=== PATIENT | male | born 1960 | race Caucasian/White ===

== ENCOUNTER → 2018-11-22 09:14 | Outpatient (CLI) | payer OTHER, SELFPAY ==
[2018-11-22 09:48] LABS: Add Manual Diff / Slide Review NO; Basophils Percent Auto 0.7 % (0-2); Eosinophils Percent Auto 2.5 % (2-4); Lymphocytes Percent Auto 25.8 % (25-40); Mean Corpuscular HGB Conc 34.9 % (30-36); Mean Corpuscular Hemoglobin 32.6 PG (26-34); Mean Corpuscular Volume 93.4 fL (80-100); Monocytes Percent Auto 9.3 % (3-14); Neutrophils Absolute Auto 3900 /uL (1500-7000); Neutrophils Percent Auto 61.7 % (50-75); Platelet Count 298 X10^3/uL (150-400); Red Blood Cell Count 4.61 X10^6/uL (4.5-5.9); Red Cell Distribution Width 13.1 % (11.6-14.8); White Blood Cell Count 6.3 X10^3/uL (4.5-11.0)
[2018-11-22 10:14] LABS: Alanine Aminotransferase 20 IU/L (21-72); Albumin 4.7 g/dL (3.5-5.0); Albumin Globulin Ratio 1.5 (1.0-2.8); Alkaline Phosphatase 64 U/L (38-126); Aspartate Aminotransferase 26 IU/L (17-59); Bilirubin Total 0.5 mg/dL (0.2-1.3); Bilirubin Unconjugated 0.3 mg/dL (0.0-1.1); Globulin 3.1 g/dL (1.7-4.1); HEMOLYSIS < 15 (0-50); Total Protein 7.8 g/dL (6.3-8.2)
== END ==
PROVIDERS: PCP Student in an Organized Health Care Education/Training Program; Visit Provider Dermatology
DX: B35.1 Tinea unguium (principal)
CPT/HCPCS: 36415; 80076; 85025

== ENCOUNTER 2019-10-20 10:51 | Emergency (ER) | payer OTHER, SELFPAY ==
[2019-10-20 11:03] VITALS: BP 139/84; PULSE 66; RESP 14; TEMP 37.3; O2SAT 99; BMI 26.4
== END 2019-10-20 14:05 | disposition left against medical advice (07) ==
PROVIDERS: Emergency Provider Nurse Practitioner Family; PCP Student in an Organized Health Care Education/Training Program
CPT/HCPCS: 99283

== ENCOUNTER → 2020-09-21 07:17 | Outpatient (CLI) | payer OTHER, SELFPAY ==
--- NOTE | 2020-09-21 07:21 | DI.RAD.S_ITS ---
PROCEDURE: XR LUMBAR SPINE 2-3V INDICATIONS: Evaluate low back pain with radiculopathy TECHNIQUE: 3 views of the lumbar spine were acquired. COMPARISON: [facility], MR, L-SPINE WITHOUT CONTRAST, 01/20/2016, 7:34. [facility], CR, L-SPINE 2-3 VIEWS, 05/06/2015, 9:44. FINDINGS: Bones: 5 [id number] vertebrae are present. There is normal bony alignment. No vertebral body compression fractures. No suspicious bony lesions. L5-S1 facet joint hypertrophy is present which results in bony neural foraminal narrowing. There is intervertebral disc space height loss. Mild bony neural foraminal narrowing at L4-L5. Small multilevel anterior osteophytes. These findings are similar to 2015. Soft tissues: Overlying bowel gas pattern is normal. No suspicious soft tissue calcifications. Phleboliths in the pelvis. IMPRESSION: 1. No compression fracture. 2. Bony L5-S1 neural foraminal narrowing, not significantly changed. Dictated by: Maksim Ortega M.D. on 09/21/2020 at 8:24 Approved by: Maksim Ortega M.D. on 09/21/2020 at 8:28
--- NOTE | 2020-09-21 07:21 | DI.RAD.S_ITS ---
PROCEDURE: XR FOOT RT MIN 3V INDICATIONS: Evaluate for right heel pain TECHNIQUE: 3 views of the foot were acquired. COMPARISON: None. FINDINGS: Bones: No fractures or dislocations. Well corticated ossicle near the Achilles tendon insertion. No suspicious bony lesions. Soft tissues: No tibiotalar joint effusion. Achilles tendon appears normal. IMPRESSION: No acute osseous abnormality. Well-corticated ossicle near the Achilles tendon insertion most likely accessory ossicle or enthesophyte rather than sequelae of prior trauma. Dictated by: Maksim Ortega M.D. on 09/21/2020 at 8:28 Approved by: Maksim Ortega M.D. on 09/21/2020 at 8:30
--- NOTE | 2020-09-21 07:21 | DI.MRI.S_ITS ---
PROCEDURE: MR LUMBAR SPINE WO CON COMPARISON: None. INDICATIONS: Evaluate FINDINGS: CONUS MEDULLARIS: Conus terminates normally at L1-2. The distal cord, conus, and cauda equina have normal signal. PARASPINAL AREA: There is no paraspinal soft tissue mass or fluid collection. The visualized kidneys and adrenal glands are grossly normal. The aorta has a normal caliber. BONES: No abnormal marrow signal. Vertebral body heights are maintained. LUMBAR DISC LEVELS: L1-L2: There is no significant disc bulge. The foramina and central canal are patent. L2-L3: Diffuse disc bulge with no significant foraminal or central canal stenosis. L3-L4: There is no significant disc bulge. The foramina and central canal are patent. L4-L5: Diffuse disc bulge with an annular tear and mild facet arthrosis causes mild bilateral foraminal stenosis. There is mild central canal stenosis. L5-S1: Diffuse disc bulge with a left paracentral protrusion protruding posteriorly approximately 8 millimeters into the left lateral recess, best on sagittal views and the T1 axial view. IMPRESSION: 1. L4-5 diffuse disc bulge with annular tear and mild facet arthrosis causing mild bilateral foraminal stenosis and mild central canal stenosis. 2. L5-S1 diffuse disc bulge with a left paracentral protrusion encroaching upon the left lateral recess and exiting S1 nerve root and causing mild bilateral foraminal stenosis and mild central canal stenosis Dictated by: Satya Garcia M.D. on 09/21/2020 at 8:32 Approved by: Satya Garcia M.D. on 09/21/2020 at 8:45
== END ==
PROVIDERS: PCP Family Medicine; Referring Provider Family Medicine; Visit Provider Family Medicine
DX: M51.16 Intervertebral disc disorders with radiculopathy, lumbar region (principal); M51.17 Intervertebral disc disorders with radiculopathy, lumbosacral region; M48.061 Spinal stenosis, lumbar region without neurogenic claudication; M48.07 Spinal stenosis, lumbosacral region; M79.671 Pain in right foot
CPT/HCPCS: 72110; 72148; 73630

== ENCOUNTER → 2020-10-29 13:35 | Outpatient (CLI) | payer OTHER, SELFPAY ==
[2020-10-29 14:45] LABS: Hemoglobin A1C% w Est Avg Glu 5.3 % (4.0-6.0)
[2020-10-29 14:48] LABS: Add Manual Diff / Slide Review NO; Basophils Absolute Auto 0 /uL (0-100); Basophils Percent Auto 0.6 % (0-2); Eosinophils Absolute Auto 300 /uL (0-450); Eosinophils Percent Auto 4.5 % (2-4); Hematocrit 40.7 % (41-53); Hemoglobin 13.8 g/dL (13.5-17.5); Lymphocytes Absolute Auto 2100 /uL (1100-4500); Mean Corpuscular Volume 94.2 fL (80-100); Monocytes Absolute Auto 500 /uL (0-900); Monocytes Percent Auto 7.4 % (3-14); Neutrophils Absolute Auto 4100 /uL (1500-7000); Neutrophils Percent Auto 57.5 % (50-75); Platelet Count 261 X10^3/uL (150-400); Red Blood Cell Count 4.32 X10^6/uL (4.5-5.9); Red Cell Distribution Width 12.8 % (11.6-14.8); White Blood Cell Count 7.1 X10^3/uL (4.5-11.0)
[2020-10-29 15:05] LABS: Alanine Aminotransferase 16 IU/L (<50); Albumin 4.6 g/dL (3.5-5.0); Albumin Globulin Ratio 1.4 (1.0-2.8); Alkaline Phosphatase 60 U/L (38-126); Aspartate Aminotransferase 35 IU/L (17-59); BUN Creatinine Ratio 15.5 (6-22); Bilirubin Total 0.7 mg/dL (0.2-1.3); Blood Urea Nitrogen 13 mg/dL (9-20); Calcium 9.4 mg/dL (8.4-10.2); Carbon Dioxide 30 mmol/L (22-32); Chloride 104 mmol/L (98-107); Estimated Glomerular Filt Rate > 60.0 mL/min (>60); Globulin 3.4 g/dL (1.7-4.1); Glucose 95 mg/dL (80-110); HEMOLYSIS < 15 (0-50); Potassium 3.8 mmol/L (3.4-5.1); Sodium 139 mmol/L (137-145)
== END ==
PROVIDERS: PCP Family Medicine; Referring Provider Family Medicine; Visit Provider Orthopaedic Surgery Orthopaedic Surgery of the Spine
DX: Z01.818 Encounter for other preprocedural examination (principal); Z01.812 Encounter for preprocedural laboratory examination; E66.3 Overweight
CPT/HCPCS: 36415; 80053; 83036; 85025; 93005; 93010

== ENCOUNTER → 2020-11-24 14:24 | Outpatient (CLI) | payer OTHER, SELFPAY ==
[2020-11-24 15:23] LABS: COVID19 -Nasal RAPID Negative (Negative)
== END ==
PROVIDERS: PCP Family Medicine; Visit Provider Family Medicine
DX: Z20.822 Contact with and (suspected) exposure to COVID-19 (principal)
CPT/HCPCS: 87635

== ENCOUNTER 2020-11-25 13:57 | Day surgery (SDC) | payer OTHER, SELFPAY ==
--- NOTE | 2020-11-25 | DI.RAD.S_ITS ---
PROCEDURE: XR LUMBAR SPINE 2-3V INDICATIONS: L5-S1 LAMINECTOMY TECHNIQUE: 2 intraoperative fluoroscopic views of the lumbar spine were acquired. COMPARISON: [facility], , XR LUMBAR SPINE 2-3V, 09/21/2020, 6:54. FINDINGS: Intraoperative fluoroscopic images of lower lumbar spine shows surgical hardware positioned posteriorly on left side of L5-S1 level. IMPRESSION: Fluoro guidance was provided intraoperatively for L5-S1 laminectomy. Dictated by: Shayan Clayton M.D. on 11/25/2020 at 16:52 Approved by: Shayan Clayton M.D. on 11/25/2020 at 16:54
[2020-11-25] MEDS: LACTATED RINGERS 1,000 ML 42 ML IV ×2 (14:07→15:59)
[2020-11-25 14:25] VITALS: BP 139/75; PULSE 65; RESP 20; TEMP 36.2; O2SAT 98; BMI 26.4
--- NOTE | 2020-11-25 14:41 | SUR.PREOP ---
insisting that she be allowed to sit with patient during pre-op. This nurse and nurse manager farm assured that patient would have detailed instructions regarding plan of care at discharge, and that Dr Granados would be calling after surgery to provide any information and answer questions. Explained to that due to COVID, no visitors allowed in Pre-op area except under special circumstances approved by management. V/U.
--- NOTE | 2020-11-25 14:52 | PM.PREOP ---
Pre-operative Note COVID-19 COVID-19 status: Negative Result date/Date tested (Pos, Neg/Pending): 11/23/20 Interval Note History & Physical reviewed/Exam performed by Physician: Yes Changes to H&P: No
[2020-11-25] MEDS: CEFAZOLIN 2 GM/100 ML FROZ.PIGGY IV (15:08)
--- NOTE | 2020-11-25 15:33 | SUR.OPER ---
Prone on spine table, head in foam head support, padded chest and pelvic supports, gel pad at knees, lower legs supported by pillows; nipples, genitalia and toes free of pressure, arms secured on foam padded arm boards at <90 degrees abduction. Tape over blanket at thigh secured to table.
[2020-11-25] MEDS: methylPREDNISolone acet DEPO 40 MG/ML VIAL INJ (15:40)
[2020-11-25] MEDS: BUPIVACAINE 0.25% W/ EPI (PF) 10 ML VIAL 20 ML INJ (15:40)
--- NOTE | 2020-11-25 15:51 | SUR.OPER ---
GLASSES IN LABELED CASE TO PACU WITH PATIENT.
--- NOTE | 2020-11-25 16:16 | PM.OP.1 ---
Operative Date/Time/Diagnoses Date of procedure: 11/23/20 Time of procedure: 15:16 Pre-op diagnosis: 1. L5-S1 disc herniation 2. L5-S1 radiculopathy Post-op diagnosis: same Procedure & Clinicians Procedure: 1. L5-S1 left microdiscectomy 2. Utilization of microsurgical technique and operating microscope Same procedure as scheduled: Yes Indications: Patient has been having chronic back pain and worsening lumbar radiculopathy. Patient failed multiple conservative management with worsening pain weakness and numbness in her lower extremity. Patient has been having difficulty performing activity of daily living. After discussing risks benefits of treatment options, patient elected proceed with surgery. Surgeon: Deya Granados Resaw Machine Operator: Mayra Tolbert Click Yes if Unassisted: No Anesthesia Type: General Operative Notes Closure Type: primary Specimen(s): none sent Prosthetic devices, grafts, tissues, transplants, or devices: Estimated Blood Loss (mL): 5 Blood products transfused: none Procedure in detail: Patient was seen in the preoperative area. Risks and benefits of the surgery was discussed with the patient. Informed consent was obtained from the patient and placed in the chart. Surgical site was marked. Patient was taken to the operative room. General anesthesia was administered. Prophylactic antibiotic was given to the patient less than 30 min before the incision was made. Patient was placed into a prone position on the Octavio table. Patient's back was then prepped and draped in the sterile fashion. Time-out was performed at this time. Using AP and lateral C-arm imaging the interval between L5-S1 was identified and marked on patient's back. A 1 inch incision 1 in from midline was made on the Left side. The fascia was incised in line with skin incision. Globus MARS retractors was placed inside the incision and docked onto the L5 lamina. Using microsurgical technique and operating microscope, a L5 laminotomy was performed using a Kerrison rongeur. Liagamentum flavum was resected at the site of the laminotomy. The disc space at L5-S1 was identified. Microdiscectomy was performed by incising the annulus with #11 blade. Microcurettes and pituitary was used to removed herniated disc fragments of disc from the epidural space. After the microdiskectomy was completed, the area medial lateral superior and inferior to the area of the microdiskectomy was inspected and explored using a micro curette. No other impinging structure was identified. The wound was then irrigated with sterile normal saline. 40 mg Depo-Medrol was placed into the epidural space. The deep fascia was closed with 1-0 Vicryl. The subcutaneous tissue was closed with 2-0 Vicryl. The skin was closed with Skin manda. Patient tolerated the procedure well. There were no complications. Patient was transferred recovery room in stable condition. Complications: none Post-operative Condition: stable Disposition: PACU Plan for aftercare: Discharge home
[2020-11-25 16:19] VITALS: BP 123/69; PULSE 61; RESP 13; TEMP 36; O2SAT 98
[2020-11-25 16:24] VITALS: BP 120/87; PULSE 57; RESP 9; O2SAT 99
[2020-11-25 16:29] VITALS: BP 126/47; PULSE 63; RESP 11; O2SAT 99
[2020-11-25 16:34] VITALS: BP 127/67; PULSE 58; RESP 14; TEMP 36.1; O2SAT 100
[2020-11-25] MEDS: OXYCODONE/ACETAMINOPHEN 5/325 TABLET 1 TAB PO (16:36)
[2020-11-25 16:37] VITALS: BP 131/63; PULSE 61; RESP 13; TEMP 36.2; O2SAT 100
[2020-11-25] MEDS: BENZOCAINE/MENTHOL 1 LOZ PKT 1 EACH PO (16:37)
== END 2020-11-25 16:50 | disposition home or self-care (01) ==
PROVIDERS: PCP Family Medicine; Referring Provider Orthopaedic Surgery Orthopaedic Surgery of the Spine; Visit Provider Orthopaedic Surgery Orthopaedic Surgery of the Spine
PROC: (CPT 63030; principal; 2020-11-25 15:15)
DX: M51.16 Intervertebral disc disorders with radiculopathy, lumbar region (principal)
CPT/HCPCS: 63030; 72100; 76000; 82962; J0330; J0690; J1030; J1100; J2405; J2704; J3010

== ENCOUNTER → 2021-09-07 07:09 | Outpatient (CLI) | payer OTHER, SELFPAY ==
--- NOTE | 2021-09-07 07:11 | DI.RAD.S_ITS ---
PROCEDURE: XR WRIST LT MIN 3V INDICATIONS: subacute left wrist pain TECHNIQUE: 4 views of the wrist were acquired. COMPARISON: None. FINDINGS: Bones: No fractures or dislocations. No suspicious bony lesions. Scaphoid view: Intact. Soft tissues: Faint calcific density projects over the dorsal lunate, which may reflect remote injury. IMPRESSION: No acute osseous abnormality. Dictated by: Zander Childers M.D. on 09/07/2021 at 8:54 Approved by: Zander Childers M.D. on 09/07/2021 at 8:56
[2021-09-07 08:21] LABS: Add Manual Diff / Slide Review NO; Basophils Absolute Auto 0 /uL (0-100); Basophils Percent Auto 0.8 % (0-2); Eosinophils Absolute Auto 200 /uL (0-450); Eosinophils Percent Auto 4.2 % (2-4); Hematocrit 40.6 % (41-53); Hemoglobin 13.9 g/dL (13.5-17.5); Lymphocytes Absolute Auto 1700 /uL (1100-4500); Lymphocytes Percent Auto 36.2 % (25-40); Mean Corpuscular HGB Conc 34.3 % (30-36); Mean Corpuscular Volume 93.3 fL (80-100); Monocytes Absolute Auto 400 /uL (0-900); Monocytes Percent Auto 9.1 % (3-14); Neutrophils Absolute Auto 2300 /uL (1500-7000); Neutrophils Percent Auto 49.7 % (50-75); Platelet Count 271 X10^3/uL (150-400); Red Blood Cell Count 4.35 X10^6/uL (4.5-5.9); Red Cell Distribution Width 13.1 % (11.6-14.8); White Blood Cell Count 4.7 X10^3/uL (4.5-11.0)
[2021-09-07 08:39] LABS: Alanine Aminotransferase 16 IU/L (<50); Albumin 4.6 g/dL (3.5-5.0); Albumin Globulin Ratio 1.6 (1.0-2.8); Alkaline Phosphatase 59 U/L (38-126); Aspartate Aminotransferase 34 IU/L (17-59); BUN Creatinine Ratio 9.4 (6-22); Bilirubin Total 0.5 mg/dL (0.2-1.3); Blood Urea Nitrogen 9 mg/dL (9-20); Calcium 9.1 mg/dL (8.4-10.2); Carbon Dioxide 28 mmol/L (22-32); Chloride 104 mmol/L (98-107); Estimated Glomerular Filt Rate > 60.0 mL/min (>60); Globulin 2.8 g/dL (1.7-4.1); Glucose 106 mg/dL (80-110); HEMOLYSIS < 15 (0-50); Lactate Dehydrogenase 421 U/L (313-618); Potassium 4.6 mmol/L (3.4-5.1); Sodium 140 mmol/L (137-145); Total Protein 7.4 g/dL (6.3-8.2)
[2021-09-07 09:07] LABS: TSH w/ Reflex to FT4 1.67 uIU/mL (0.47-4.68)
[2021-09-07 09:26] LABS: Vitamin B12 Reflex MMA if <400 540 pg/mL (239-931)
== END ==
PROVIDERS: PCP Family Medicine; Referring Provider Family Medicine; Visit Provider Family Medicine
DX: M25.532 Pain in left wrist (principal); R53.83 Other fatigue; R63.4 Abnormal weight loss
CPT/HCPCS: 36415; 73110; 80053; 82607; 83615; 84443; 85025; 86769

== ENCOUNTER → 2021-11-23 15:41 | Outpatient (CLI) | payer OTHER, SELFPAY ==
--- NOTE | 2021-11-23 15:43 | DI.RAD.S_ITS ---
PROCEDURE: XR LUMBAR SPINE 2-3V INDICATIONS: chronic low back pain, spondylosis TECHNIQUE: 3 views of the lumbar spine were acquired. COMPARISON: [facility], MR, MR LUMBAR SPINE WO CON, 09/21/2020, 7:37. [facility], CR, XR LUMBAR SPINE 2-3V, 11/25/2020, 15:29. FINDINGS: Bones: 5 [id number] vertebrae are present. There is normal bony alignment. No vertebral body compression fractures. No suspicious bony lesions. Mild disc space narrowing and degenerative endplate changes seen at multiple levels, slightly more prominent at the L5-S1 level. Mild facet hypertrophy is seen throughout the lumbar spine. Soft tissues: Overlying bowel gas pattern is normal. No suspicious soft tissue calcifications. IMPRESSION: No acute osseous abnormality. Multilevel spondylosis. Consider lumbar spine MRI for further evaluation if the symptoms continue. Dictated by: Cooper Clarke M.D. on 11/23/2021 at 19:52 Approved by: Cooper Clarke M.D. on 11/23/2021 at 19:56
== END ==
PROVIDERS: PCP Family Medicine; Referring Provider Family Medicine; Visit Provider Family Medicine
DX: M47.816 Spondylosis without myelopathy or radiculopathy, lumbar region (principal); M54.41 Lumbago with sciatica, right side; R93.7 Abnormal findings on diagnostic imaging of other parts of musculoskeletal system
CPT/HCPCS: 72100

== ENCOUNTER 2022-02-22 07:46 | Emergency (ER) | payer OTHER, SELFPAY ==
--- NOTE | 2022-02-22 07:47 | ED.BACK ---
HPI - Back Pain/Injury General Chief Complaint: Back Pain/Injury Stated Complaint: Backpain, numbness/swelling in legs. hx of surgery Time Seen by Provider: 02/22/22 07:47 History of Present Illness HPI Narrative: 61 Male nonsmoker with history of back surgery including a and L5-S1 left microdiskectomy in 2020 to repair an L5-S1 disc herniation with associated radiculopathy presents with his at the request of his primary care provider for evaluation of pain and the perception of possible swelling in his right lower extremity from behind the knee to the lateral calf. He denies any injury or overuse. He denies any history of clot. He denies any recent travel or injury. He denies redness, warmth or fever. He denies any chest pain or shortness of breath. He states it does feel rather similar to some of the symptoms he had prior to the surgery on his back. He denies any loss of control of bowel or bladder. He states the pain is worse when he moves and improves with rest though it does sometimes keep him awake at night. He states it hurts and may be weak, he states sometimes it is hard for him to walk. Related Data Previous Rx's Medication Instructions Recorded ibuprofen 800 mg tablet 800 mg PO Q8H #180 tab 11/23/21 prednisone 20 mg tablet 40 mg PO DAILY #10 tab 02/21/22 cyclobenzaprine 10 mg tablet 10 mg PO TID PRN #14 tab 02/22/22 hydrocodone 5 mg-acetaminophen 325 1 tab PO Q4-6H PRN #10 tab 02/22/22 mg tablet Allergies Allergy/AdvReac Type Severity Reaction Status Date / Time No Known Drug Allergies Allergy Verified 08/27/21 08:58 Review of Systems Review of Systems Narrative: GENERAL: Denies chills, fatigue, malaise, fever, sweats. HEENT: Denies sinus pain, ear pain, sore throat, difficulty swallowing, dizziness. RESPIRATORY: Denies dyspnea, cough, wheezing, hemoptysis, sputum. CARDIOVASCULAR: Denies chest pain, palpitations, orthopnea, edema, GASTROINTESTINAL: Denies nausea, vomiting, abdominal pain, diarrhea, constipation, melena. : Denies dysuria, frequency, incontinence, hematuria, urinary retention. MUSCULOSKELETAL: see HPI SKIN: Denies rash, skin lesions, or other NEUROLOGIC: Denies weakness, headache, numbness, change in speech, confusion, seizures, incoordination. PSYCHIATRIC: No concerning psychosocial issues. 12 point review of systems is negative except for those stated above Patient History Medical History Asthma Chicken pox Chronic back pain (~1986) Fatigue Fractures (~1979) Hay fever Headache (~2013) Hearing loss (~1989) Left wrist pain Lumbar spondylosis Measles Mumps Post traumatic stress disorder (PTSD) (~1989) Shoulder pain (~1979) Skin rash (~1979) Tinnitus Vision disorder Weight loss Surgical History Anesthesia History of ear surgery History of shoulder surgery (~2013) History of vasectomy (~2002) Family History Father Cancer Leukemia Mother Hypertension COPD (chronic obstructive pulmonary disease) Brother Heart disease Hypertension Mental health problem Sister Heart disease Seizure in childhood Grandfather Lung cancer Leukemia Social History marital status: details: lainey Plunkett, lives in [place] household members: spouse lives independently: Yes caregiver/support person: No housing: house education level: college occupational status: employed Smoking Status: Never smoker alcohol intake: current substance use type: does not use Smoking Status: Never smoker Substance Use Type: does not use Exam Narrative Exam Narrative: GENERAL: [61] year old patient appears stated age. Well-developed patient, in mild distress. HEAD: Atraumatic. Normocephalic. EYES: Pupils equal round and reactive. Extraocular motions intact. No scleral icterus. No injection or drainage. ENT: Nose without bleeding, purulent drainage. Throat without erythema, tonsillar hypertrophy or exudate. Airway patent. NECK: Trachea midline. Non tender CARDIOVASCULAR: Regular rate and rhythm without murmurs, gallops, or rubs. RESPIRATORY: Clear to auscultation. Breath sounds equal bilaterally. No wheezes, rales, or rhonchi. GASTROINTESTINAL: Abdomen soft, non-tender, nondistended. EXTREMITIES: No edema or joint tenderness. BACK: No obvious midline tenderness, step-offs, swelling, redness. Reproducible pain and right buttock. No saddle anesthesia. Bilateral patellar reflexes 1+. Tingling to right lateral lower extremity. 5/5 muscle strength bilateral lower extremities NEURO: AOx3. SKIN: No rash or erythema of visible areas Initial Vital Signs Initial Vital Signs: Vital Signs Temperature 98.6 F 02/22/22 08:03 Pulse Rate 54 L 02/22/22 08:03 Respiratory Rate 16 02/22/22 08:03 Blood Pressure 149/70 H 02/22/22 08:03 Pulse Oximetry 100 02/22/22 08:03 Course Orders Ordered: Discontinued Medications Ketorolac Tromethamine (Ketorolac 30 Mg/Ml Vial) 15 mg IV NOW ONE Stop: 02/22/22 08:07 Last Admin: 02/22/22 08:16 Dose: 15 mg Documented by: HELENA Consultations Consultation #1: Discussed findings of visit including history, physical and imaging with patient's orthopedic spine surgeon Dr. Granados. He agrees with the plan, understands patient would prefer to not take Gabapentin, and recommends he call the office to schedule close follow up Vital Signs Vital signs: Vital Signs - 8 hr 02/22/22 08:03 Temperature 98.6 F Pulse Rate 54 L Respiratory Rate 16 Blood Pressure 149/70 H Pulse Oximetry 100 MDM - Back Pain/Injury Lab Data Result diagrams: 02/22/22 08:08 02/22/22 08:08 Labs: Lab Results 02/22/22 02/22/22 Range/Units 08:08 08:08 WBC 7.6 (4.5-11.0) X10^3/uL RBC 4.14 L (4.5-5.9) X10^6/uL Hgb 13.5 (13.5-17.5) g/dL Hct 38.6 L (41-53) % MCV 93.2 (80-100) fL MCH 32.5 (26-34) PG MCHC 34.9 (30-36) % RDW 12.9 (11.6-14.8) % Plt Count 261 (150-400) X10^3/uL Neut % (Auto) 64.8 (50-75) % Lymph % (Auto) 26.5 (25-40) % [facility] % (Auto) 7.8 (3-14) % Eos % (Auto) 0.3 L (2-4) % Baso % (Auto) 0.6 (0-2) % Neut # (Auto) 4900 (2096-9449) /uL Lymph # (Auto) 2000 (8685-4916) /uL [facility] # (Auto) 600 (0-900) /uL Eos # (Auto) 0 (0-450) /uL Baso # (Auto) 0 (0-100) /uL Sodium 142 (137-145) mmol/L Potassium 4.2 (3.4-5.1) mmol/L Chloride 109 H (98-107) mmol/L Carbon Dioxide 24 (22-32) mmol/L BUN 10 (9-20) mg/dL Creatinine 0.81 (0.66-1.25) mg/dL Estimated GFR > 60.0 (>60) mL/min BUN/Creatinine Ratio 12.3 (6-22) Glucose 123 H (80-110) mg/dL Calcium 8.9 (8.4-10.2) mg/dL C-Reactive Protein < 0.5 (<1.0) mg/dL Imaging Data US - DVT: Radiologist's Impression: [address] [address] Ultrasound Report Signed Patient: Zach Krishnamurthy MR#: [id number] : 1960 Acct:[id number] Age/Sex: 61 / M Date of Service: 02/22/22 Loc: ED Accession Number: [id number] ?? Procedure: US periph venous low extrem rt Ordering Provider: Linus Smith D.O. PROCEDURE:? US PERIPH VENOUS LOW EXTREM RT ? INDICATIONS:? PAIN, EDEMA ? TECHNIQUE:? Real-time imaging, as well as color and pulse Doppler interrogation, were performed of the lower extremity deep veins from the inguinal ligament to the popliteal fossa.? ? COMPARISON:? None. ? FINDINGS:? The common femoral, femoral and popliteal veins are normally compressible, and free of intraluminal thrombus.? Color and pulse Doppler demonstrate normal phasic intraluminal flow.? There is normal augmentation response to distal compression maneuver. ? ? IMPRESSION:? No DVT in the right lower extremity. ? ? Dictated by: Gregorio Parnell M.D. on 02/22/2022 at 8:34 ? ? Approved by: Gregorio Parnell M.D. on 02/22/2022 at 8:35 ? Lumbar MRI: Radiologist's Impression: Launch?Image [address] [address] Magnetic Resonance Report Signed Patient: Zach Krishnamurthy MR#: [id number] : 1960 Acct:[id number] Age/Sex: 61 / M Date of Service: 02/22/22 Loc: ED Accession Number: [id number] ?? Procedure: MR lumbar spine wo con Ordering Provider: Linus Smith D.O. PROCEDURE:? MR LUMBAR SPINE WO CON ? INDICATIONS:? RLE pain, ? TECHNIQUE:? Noncontrast sagittal T1 spin echo and T2 fast echo, sagittal STIR, and T2 fast spin echo through the lumbar spine.? In cases with scoliosis, additional coronal T2 fast spin echo may be performed.? ? COMPARISON:? [facility], MR, MR LUMBAR SPINE WO CON, 09/21/2020, 7:37.? [facility], CR, XR LUMBAR SPINE 2-3V, 11/25/2020, 15:29.? [facility], CR, XR LUMBAR SPINE 2-3V, 11/23/2021, 15:37.? [facility], MR, L-SPINE WITHOUT CONTRAST, 01/20/2016, 7:34. ? FINDINGS:? Image quality:? Excellent.? ? Alignment and Curvature:? There is normal bony alignment.? ? Bone Marrow:? Marrow is of normal overall signal.? No acute vertebral body compression fractures.? ? Spinal Cord:? Conus medullaris terminates at the L1 level.? Visualized cord demonstrates normal signal and size.? ? Paraspinous Soft Tissues:? No paravertebral masses.? ? T12-L1:? Normal appearance.? ? L1-L2:? No significant abnormality is seen ? L2-L3:? The disc height and disc signal are relatively well preserved. Moderate generalized disc bulge is seen. Mild facet joint hypertrophy is seen.? There is [id number] right-sided moderate left-sided neural foraminal narrowing seen.? Moderate central canal narrowing is seen. ? Stable from the prior study.? ? L3-L4:? The disc height and disk signal are well-preserved. Mild generalized disc bulge is seen.? Mild facet joint hypertrophy is seen.? Moderate bilateral neural foraminal narrowing can be seen, left worse than right.? Mild to moderate central canal narrowing is seen at this level.? When comparison is made with the prior images, these findings are similar.? ? L4-L5:? The disc height is well-preserved.? Loss of disc signal is seen at this level.? Moderate disc bulge is seen, with a central/left disc protrusion.? There is also and extruded, sequestered disc fragment seen within the central/right region inferiorly. There is a focal annular fissure seen posteriorly.? At least moderate facet hypertrophy is seen. Associated hypertrophy of the ligamentum flavum can be seen.? There is moderate right-sided and moderate to severe left-sided neural foraminal narrowing.? These degenerative changes are clearly worse than in 2020. ? L5-S1:? Moderate loss of disc height is seen.? Loss of disc signal is seen.? Moderate generalized disc bulge is seen.? There is a mild central/left disc protrusion, with an associated annular fissure.? Mild to moderate facet hypertrophy is seen. Moderate bilateral neural foraminal narrowing is seen.? Mild central canal narrowing is seen.? The previously seen left-sided disc extrusion is no longer seen. ? ? IMPRESSION:? Interval resolution of the previously seen left-sided disc extrusion at L5-S1. ? At L4-5, there is now seen a central/left disc protrusion and a central/right sequestered disc fragment inferiorly.? These findings are clearly worse than in 2020. ? Dictated by: Sam Lundy M.D. on 02/22/2022 at 8:36 ? ? Approved by: Sam Lundy M.D. on 02/22/2022 at 8:43 ? MDM Narrative Medical decision making narrative: Multiple etiologies of back pain considered including; Epidural abscess, cauda equina, mass occupying lesion, and other considered, however no red flag findings consistent with neurosurgical emergency are present. Pain is more appropriately controlled. He is able to ambulate out without much difficulty. He plans to call his orthopedic surgeon, whom I have spoken with. Return precautions given and questions answered to his apparent satisfaction Discharge Plan Departure Patient Disposition: Home Clinical Impression: Lumbar disc herniation with radiculopathy, Acute back pain with radiculopathy Instructions: DI for Lumbar Radiculopathy Activity Restrictions/Additional Instructions: *You have been diagnosed with [acute right-sided lumbar radiculopathy. As we discussed her history and physical exam as well as MRI are consistent with a lumbar radiculopathy. There are no indications of a neuro surgical emergency. Also, your ultrasound was negative for DVT. *What to do: *Please continue to take your regular medications as directed. [ x] New medication prescriptions sent to your pharmacy: [ [facility]] [ ] New medication written as a paper prescription [ ] No new medications given *Please follow up with your primary care provider in 2-3 days, call for an appointment. Let them know you were seen in the Emergency Department and that we ask that you be seen in follow up. We will electronically transmit a record of today's note if your PCP is in our system *Please contact Dr. Granados's office for follow up. Please let them know that your in the emergency department today it we asked that he be seen in follow-up. As we discussed, I did tried to contact him directly but he is in the operating room all day and unable to receive calls. I have electronically transmitted a copy of today's note to his office *Return to Emergency Department if you should have any new, worsening or concerning symptoms, such as [fever greater than 101 F, shaking chills, worsening pain, persistent vomiting or other bothersome symptoms] Prescriptions: New cyclobenzaprine 10 mg tablet 10 mg PO TID PRN (Reason: muscle spasm) Qty: 14 0RF hydrocodone-acetaminophen 5-325 mg tablet 1 tab PO Q4-6H PRN (Reason: pain) Qty: 10 0RF No Action prednisone 20 mg tablet 40 mg PO DAILY Qty: 10 0RF ibuprofen 800 mg tablet 800 mg PO Q8H Qty: 180 3RF Referrals: Daniel Toussaint MD [Primary Care Provider] - Deya Granados MD [Physician] -
--- NOTE | 2022-02-22 07:59 | DI.US.S_ITS ---
PROCEDURE: US PERIPH VENOUS LOW EXTREM RT INDICATIONS: PAIN, EDEMA TECHNIQUE: Real-time imaging, as well as color and pulse Doppler interrogation, were performed of the lower extremity deep veins from the inguinal ligament to the popliteal fossa. COMPARISON: None. FINDINGS: The common femoral, femoral and popliteal veins are normally compressible, and free of intraluminal thrombus. Color and pulse Doppler demonstrate normal phasic intraluminal flow. There is normal augmentation response to distal compression maneuver. IMPRESSION: No DVT in the right lower extremity. Dictated by: Gregorio Parnell M.D. on 02/22/2022 at 8:34 Approved by: Gregorio Parnell M.D. on 02/22/2022 at 8:35
--- NOTE | 2022-02-22 07:59 | DI.MRI.S_ITS ---
PROCEDURE: MR LUMBAR SPINE WO CON INDICATIONS: RLE pain, TECHNIQUE: Noncontrast sagittal T1 spin echo and T2 fast echo, sagittal STIR, and T2 fast spin echo through the lumbar spine. In cases with scoliosis, additional coronal T2 fast spin echo may be performed. COMPARISON: [facility], MR, MR LUMBAR SPINE WO CON, 09/21/2020, 7:37. [facility], CR, XR LUMBAR SPINE 2-3V, 11/25/2020, 15:29. [facility], CR, XR LUMBAR SPINE 2-3V, 11/23/2021, 15:37. [facility], MR, L-SPINE WITHOUT CONTRAST, 01/20/2016, 7:34. FINDINGS: Image quality: Excellent. Alignment and Curvature: There is normal bony alignment. Bone Marrow: Marrow is of normal overall signal. No acute vertebral body compression fractures. Spinal Cord: Conus medullaris terminates at the L1 level. Visualized cord demonstrates normal signal and size. Paraspinous Soft Tissues: No paravertebral masses. T12-L1: Normal appearance. L1-L2: No significant abnormality is seen L2-L3: The disc height and disc signal are relatively well preserved. Moderate generalized disc bulge is seen. Mild facet joint hypertrophy is seen. There is abuv-wu-grgxbcdz right-sided moderate left-sided neural foraminal narrowing seen. Moderate central canal narrowing is seen. Stable from the prior study. L3-L4: The disc height and disk signal are well-preserved. Mild generalized disc bulge is seen. Mild facet joint hypertrophy is seen. Moderate bilateral neural foraminal narrowing can be seen, left worse than right. Mild to moderate central canal narrowing is seen at this level. When comparison is made with the prior images, these findings are similar. L4-L5: The disc height is well-preserved. Loss of disc signal is seen at this level. Moderate disc bulge is seen, with a central/left disc protrusion. There is also and extruded, sequestered disc fragment seen within the central/right region inferiorly. There is a focal annular fissure seen posteriorly. At least moderate facet hypertrophy is seen. Associated hypertrophy of the ligamentum flavum can be seen. There is moderate right-sided and moderate to severe left-sided neural foraminal narrowing. These degenerative changes are clearly worse than in 2020. L5-S1: Moderate loss of disc height is seen. Loss of disc signal is seen. Moderate generalized disc bulge is seen. There is a mild central/left disc protrusion, with an associated annular fissure. Mild to moderate facet hypertrophy is seen. Moderate bilateral neural foraminal narrowing is seen. Mild central canal narrowing is seen. The previously seen left-sided disc extrusion is no longer seen. IMPRESSION: Interval resolution of the previously seen left-sided disc extrusion at L5-S1. At L4-5, there is now seen a central/left disc protrusion and a central/right sequestered disc fragment inferiorly. These findings are clearly worse than in 2020. Dictated by: Sam Lundy M.D. on 02/22/2022 at 8:36 Approved by: Sam Lundy M.D. on 02/22/2022 at 8:43
[2022-02-22 08:03] VITALS: BP 149/70; PULSE 54; RESP 16; TEMP 37; O2SAT 100; BMI 26.7
[2022-02-22] MEDS: KETOROLAC 30 MG/ML VIAL 15 MG IV (08:16)
[2022-02-22 08:21] LABS: Add Manual Diff / Slide Review NO; Basophils Absolute Auto 0 /uL (0-100); Basophils Percent Auto 0.6 % (0-2); Eosinophils Absolute Auto 0 /uL (0-450); Eosinophils Percent Auto 0.3 % (2-4); Hematocrit 38.6 % (41-53); Hemoglobin 13.5 g/dL (13.5-17.5); Lymphocytes Absolute Auto 2000 /uL (1100-4500); Lymphocytes Percent Auto 26.5 % (25-40); Mean Corpuscular HGB Conc 34.9 % (30-36); Mean Corpuscular Hemoglobin 32.5 PG (26-34); Mean Corpuscular Volume 93.2 fL (80-100); Monocytes Absolute Auto 600 /uL (0-900); Monocytes Percent Auto 7.8 % (3-14); Neutrophils Absolute Auto 4900 /uL (1500-7000); Neutrophils Percent Auto 64.8 % (50-75); Platelet Count 261 X10^3/uL (150-400); Red Blood Cell Count 4.14 X10^6/uL (4.5-5.9); Red Cell Distribution Width 12.9 % (11.6-14.8); White Blood Cell Count 7.6 X10^3/uL (4.5-11.0)
[2022-02-22 08:33] LABS: BUN Creatinine Ratio 12.3 (6-22); Blood Urea Nitrogen 10 mg/dL (9-20); C-Reactive Protein Quant < 0.5 mg/dL (<1.0); Calcium 8.9 mg/dL (8.4-10.2); Carbon Dioxide 24 mmol/L (22-32); Chloride 109 mmol/L (98-107); Estimated Glomerular Filt Rate > 60.0 mL/min (>60); Glucose 123 mg/dL (80-110); HEMOLYSIS < 15 (0-50); Potassium 4.2 mmol/L (3.4-5.1); Sodium 142 mmol/L (137-145)
[2022-02-22 10:49] VITALS: BP 144/66; PULSE 51; RESP 18; O2SAT 99
== END 2022-02-22 10:52 | disposition home or self-care (01) ==
PROVIDERS: Emergency Provider Emergency Medicine; PCP Family Medicine
DX: M51.16 Intervertebral disc disorders with radiculopathy, lumbar region (principal)
CPT/HCPCS: 36415; 72148; 80048; 85025; 86140; 93971; 96374; 99284; J1885

== ENCOUNTER → 2022-03-04 10:29 | Outpatient (CLI) | payer OTHER, SELFPAY ==
[2022-03-04 11:13] LABS: Add Manual Diff / Slide Review NO; Basophils Absolute Auto 100 /uL (0-100); Basophils Percent Auto 1.3 % (0-2); Eosinophils Absolute Auto 100 /uL (0-450); Eosinophils Percent Auto 2.4 % (2-4); Hematocrit 40.2 % (41-53); Hemoglobin 14.1 g/dL (13.5-17.5); Lymphocytes Absolute Auto 1600 /uL (1100-4500); Lymphocytes Percent Auto 32.7 % (25-40); Mean Corpuscular Hemoglobin 32.7 PG (26-34); Mean Corpuscular Volume 93.5 fL (80-100); Monocytes Absolute Auto 500 /uL (0-900); Monocytes Percent Auto 9.9 % (3-14); Neutrophils Absolute Auto 2600 /uL (1500-7000); Neutrophils Percent Auto 53.7 % (50-75); Platelet Count 256 X10^3/uL (150-400); Red Cell Distribution Width 12.9 % (11.6-14.8); White Blood Cell Count 4.8 X10^3/uL (4.5-11.0)
[2022-03-04 11:32] LABS: BUN Creatinine Ratio 17.6 (6-22); Blood Urea Nitrogen 16 mg/dL (9-20); Calcium 9.4 mg/dL (8.4-10.2); Carbon Dioxide 25 mmol/L (22-32); Chloride 106 mmol/L (98-107); Estimated Glomerular Filt Rate > 60 mL/min (>60); Glucose 114 mg/dL (80-110); HEMOLYSIS < 15 (0-50); Potassium 4.5 mmol/L (3.4-5.1); Sodium 141 mmol/L (137-145)
== END ==
PROVIDERS: PCP Family Medicine; Referring Provider Orthopaedic Surgery Orthopaedic Surgery of the Spine; Visit Provider Orthopaedic Surgery Orthopaedic Surgery of the Spine
DX: Z01.812 Encounter for preprocedural laboratory examination (principal); M51.16 Intervertebral disc disorders with radiculopathy, lumbar region; M48.061 Spinal stenosis, lumbar region without neurogenic claudication
CPT/HCPCS: 36415; 80048; 85025

== ENCOUNTER 2022-03-14 10:33 | Day surgery (SDC) | payer OTHER, SELFPAY ==
[2022-03-14] VITALS (10 sets, daily range): BP systolic 95–137; BP diastolic 55–74; PULSE 48–59; RESP 9–16; TEMP 35.9–36.6; O2SAT 16–100; BMI 26.4
[2022-03-14 11:11] LABS: COVID19 -Nasal RAPID Negative (Negative)
[2022-03-14] MEDS: LACTATED RINGERS 1,000 ML 42 ML IV (11:24)
[2022-03-14] MEDS: GABAPENTIN 300 MG CAPSULE PO (11:33)
[2022-03-14] MEDS: ACETAMINOPHEN 325 MG TABLET 650 MG PO (11:34)
--- NOTE | 2022-03-14 12:12 | PM.PREOP ---
Pre-operative Note COVID-19 COVID-19 status: Negative Result date/Date tested (Pos, Neg/Pending): 03/13/22 Criteria for continued procedure: Expected advancement of disease process, Possibility delay results in more complex future surgery or treatment, Increased loss of function, Continuing or worsening of significant or severe pain, Deterioration of the patient's condition or overall health and Delay expected to result in less-positive ultimate med/surg outcome Interval Note History & Physical reviewed/Exam performed by Physician: Yes Changes to H&P: No
--- NOTE | 2022-03-14 12:26 | SUR.PREOP ---
03/14/22-1044 message left on consent for md to address calling in RX to [facility] per patient and wifes request. have been having issues with long delays if done later in day. message read by MD at 1215pm, and discussed with patient.
[2022-03-14] MEDS: CEFAZOLIN 2 GM/20 ML SYRINGE IV (13:06)
--- NOTE | 2022-03-14 13:13 | SUR.OPER ---
Prone on spine table, head in foam head support, padded chest and pelvic supports, gel pad at knees, lower legs supported by pillows; nipples, genitalia and toes free of pressure, arms secured on foam padded arm boards at <90 degrees abduction. Gel pad between bilateral heels. Tape over blanket at thigh secured to table.
[2022-03-14] MEDS: BUPIVACAINE 0.25% (PF) 60 ML, EPINEPHrine 0.3 MG INJ (13:24)
--- NOTE | 2022-03-14 13:31 | DI.RAD.S_ITS ---
PROCEDURE: XR LUMBAR SPINE 2-3V INDICATIONS: L4-5 MICRODISCECTOMY TECHNIQUE: 2 intraoperative fluoroscopic views of the lumbar spine were acquired. COMPARISON: [facility], , XR LUMBAR SPINE 2-3V, 11/23/2021, 15:37. FINDINGS: Intraoperative fluoroscopic images of lower lumbar spine shows surgical instrument placed at right posterior aspect of L4-5 level. IMPRESSION: Fluoro guidance was provided intraoperatively for L4-5 micro discectomy. Dictated by: Shayan Clayton M.D. on 03/14/2022 at 14:24 Approved by: Shayan Clayton M.D. on 03/14/2022 at 15:12
--- NOTE | 2022-03-14 14:03 | P.OP_ITS ---
Operative Date/Time/Diagnoses Date of procedure: 03/14/22 Time of procedure: 13:00 Pre-op diagnosis: 1. L4-5 disc herniation 2. L4-5 radiculopathy Post-op diagnosis: same Procedure & Clinicians Procedure: 1. L4-5 right microdiscectomy 2. Utilization of microsurgical technique and operating microscope Same procedure as scheduled: Yes Indications: Patient has been having chronic back pain and worsening lumbar radiculopathy. Patient failed multiple conservative management with worsening pain weakness and numbness in her lower extremity. Patient has been having difficulty performing activity of daily living. After discussing risks benefits of treatment options, patient elected proceed with surgery. Surgeon: Deya Granados Network Technical Analyst: Saige Sainz Click Yes if Unassisted: No Anesthesia Type: General Operative Notes Closure Type: primary Specimen(s): none sent Estimated Blood Loss (mL): 5 Blood products transfused: none Procedure in detail: Patient was seen in the preoperative area. Risks and benefits of the surgery was discussed with the patient. Informed consent was obtained from the patient and placed in the chart. Surgical site was marked. Patient was taken to the operative room. General anesthesia was administered. Prophylactic antibiotic was given to the patient less than 30 min before the incision was made. Patient was placed into a prone position on the Octavio table. Patient's back was then prepped and draped in the sterile fashion. Time-out was performed at this time. Using AP and lateral C-arm imaging the interval between L4-5 was identified and marked on patient's back. A 1 inch incision 1 in from midline was made on the right side. The fascia was incised in line with skin incision. Globus MARS retractors was placed inside the incision and docked onto the L4 lamina. Using microsurgical technique and operating microscope, a L4 laminotomy was performed using a Kerrison rongeur. Liagamentum flavum was resected at the site of the laminotomy. The disc space at L4-5 was identified. Microdiscectomy was performed by incising the annulus with #11 blade. Microcurettes and pituitary was used to removed herniated disc fragments of disc from the epidural space. Patient was found have several pieces of extruded disc fragment in the epidural space on the right side. The loose fragments of disc was removed using pituitary. After the microdiskectomy was completed, the area medial lateral superior and inferior to the area of the microdiskectomy was inspected and explored using a micro curette. No other impinging structure was identified. The wound was then irrigated with sterile normal saline. 40 mg Depo-Medrol was placed into the epidural space. The deep fascia was closed with 1-0 Vicryl. The subcutaneous tissue was closed with 2-0 Vicryl. The skin was closed with skin manda. Patient tolerated the procedure well. There were no complications. Patient was transferred recovery room in stable condition. Complications: none Post-operative Condition: stable Disposition: PACU Plan for aftercare: Discharge to home
[2022-03-14] MEDS: OXYCODONE IR 5 MG TABLET PO ×2 (14:34→15:12)
--- NOTE | 2022-03-14 15:09 | SUR.PHASEI ---
Patient states can do straight leg raises with R leg which he stated he could not do preop due to pain.
--- NOTE | 2022-03-14 15:39 | SUR.PHASEII ---
Wrote second oxycodone on patient's discharge papers.
--- NOTE | 2022-03-14 16:15 | SUR.PHASEII ---
1405 Patient's called, unhappy that he was given the same medication post-op that he'd pre-op. RN called Dr. Granados, told him of 's concern, and that the numbness was resolved post-op. Pain had improved to the level that the patient was able to raise his leg post-op. Dr. Granados stated that he ordered the medication which the patient had requested and said to relay that message to the spouse. She will be called approx 1430 as she is currently out of cell range.
== END 2022-03-14 15:20 | disposition home or self-care (01) ==
PROVIDERS: PCP Family Medicine; Referring Provider Orthopaedic Surgery Orthopaedic Surgery of the Spine; Visit Provider Orthopaedic Surgery Orthopaedic Surgery of the Spine
PROC: (CPT 63030; principal; 2022-03-14 12:45)
DX: M51.16 Intervertebral disc disorders with radiculopathy, lumbar region (principal); Z20.822 Contact with and (suspected) exposure to COVID-19
CPT/HCPCS: 63030; 72100; 76000; 87635; C9803; J0171; J0690; J1100; J2405; J2704; J2920; J3010

== ENCOUNTER → 2022-06-09 07:54 | Outpatient (CLI) | payer OTHER, SELFPAY ==
--- NOTE | 2022-06-09 07:55 | DI.MRI.S_ITS ---
PROCEDURE: MR LUMBAR SPINE WO CON INDICATIONS: back pain s/p microdiscectomy TECHNIQUE: Noncontrast sagittal T1 spin echo and T2 fast echo, sagittal STIR, and T2 fast spin echo through the lumbar spine. In cases with scoliosis, additional coronal T2 fast spin echo may be performed. COMPARISON: [facility], MR, MR LUMBAR SPINE WO CON, 02/22/2022, 8:26. FINDINGS: Image quality: Excellent. Alignment and Curvature: There is normal bony alignment. Bone Marrow: Marrow is of normal overall signal. No acute vertebral body compression fractures. Spinal Cord: Conus medullaris terminates at the L1 level. Visualized cord demonstrates normal signal and size. Paraspinous Soft Tissues: No paravertebral masses. Discs: Overall minimal to mild desiccation is present throughout the lumbar spine with moderate at L5-S1. T12-L1: No disc bulge, spinal stenosis or foraminal narrowing. L1-L2: No disc bulge, spinal stenosis or foraminal narrowing. No interval change. L2-L3: Mild disc bulge with moderate spinal stenosis. Umel-ho-xckftvrz right and moderate left foraminal narrowing with facet and ligamentum flavum hypertrophy. Minimal epidural lipomatosis. No interval change. L3-L4: Mild disc bulge with vwfj-cb-fxubahst spinal stenosis. Moderate bilateral foraminal narrowing slightly worse on the left with facet and ligamentum flavum hypertrophy. Minimal epidural lipomatosis. No interval change. L4-L5: Mild disc bulge with mild spinal stenosis improved compared to prior exam. Previous extruded fragment is no longer visualized. There is moderate bilateral foraminal narrowing appearing minimally worse on the right overall without significant oval change. Facet and ligamentum flavum hypertrophy are present. It is noted that there is increased T1 and T2 signal posterior to the right facet joint. L5-S1: Mild disc bulge with small posterior central protrusion. Minimal to mild spinal stenosis. Moderate bilateral foraminal narrowing, left greater than right with facet hypertrophy. IMPRESSION: Postsurgical changes at L4-5 with nonvisualization of previous extruded fragment. Improved spinal stenosis at this level. Increased signal is noted posterior to the right facet joint at this level possibly related to postsurgical edema. Multilevel foraminal narrowing overall unchanged and most notable at L3-4 and L4-5 and L5-S1 secondary to facet arthropathy. Dictated by: Chula Felix M.D. on 06/09/2022 at 10:24 Approved by: Chula Felix M.D. on 06/09/2022 at 10:36
== END ==
PROVIDERS: PCP Family Medicine; Referring Provider Family Medicine; Visit Provider Family Medicine
DX: M47.816 Spondylosis without myelopathy or radiculopathy, lumbar region (principal); M47.817 Spondylosis without myelopathy or radiculopathy, lumbosacral region; M48.061 Spinal stenosis, lumbar region without neurogenic claudication; M48.07 Spinal stenosis, lumbosacral region; M54.9 Dorsalgia, unspecified; Z98.890 Other specified postprocedural states
CPT/HCPCS: 72148

== ENCOUNTER → 2022-10-24 09:00 | Outpatient (CLI) | payer OTHER, SELFPAY ==
[2022-10-24 10:59] LABS: COVID19 -Nasal RAPID Negative (Negative)
== END ==
PROVIDERS: PCP Family Medicine; Visit Provider Surgery
DX: Z01.812 Encounter for preprocedural laboratory examination (principal); Z20.822 Contact with and (suspected) exposure to COVID-19
CPT/HCPCS: 87635; C9803

== ENCOUNTER 2022-10-25 07:40 | Day surgery (SDC) | payer OTHER, SELFPAY ==
--- NOTE | 2022-10-25 | PATH_ITS ---
[facility] Accession Number: [id number] . 01 Material submitted: . colon - TRANSVERSE COLON POLYPS . 01 Diagnosis: Transverse Colon Polyps, Biopsy: Tubular adenoma x2. Additional colonic mucosa with benign lymphoid aggregate. RIO 10/27/2022 1037 Local . 01 Electronically signed: . Iris Madden MD, Pathologist NPI- [id number] . 01 Gross description: . TRANSVERSE COLON POLYPS: Received in formalin are 3 fragment(s) of bolton, soft tissue measuring 0.4 x 0.3 x 0.3 cm to 0.2 x 0.2 x 0.1 cm submitted entirely in 1 cassette(s) /CPE 10/26/2022 0620 Local . 01 Pathologist provided ICD-10: D12.3, K63.89 . 01 CPT . 400220 Specimen Comment: A courtesy copy of this report has been sent to [phone] Performed at: 01 [facility] [address] [place] [address] [address] [facility], [place], [place] [id number] MD Cody Cano MD Phone: [phone]
[2022-10-25 08:04] VITALS: BP 136/76; PULSE 65; RESP 18; TEMP 36.9; O2SAT 100; BMI 26.4
[2022-10-25 08:13] VITALS: BP 136/76; PULSE 65; RESP 18; TEMP 36.6; O2SAT 100; BMI 26.4
--- NOTE | 2022-10-25 08:19 | PM.HP.1 ---
History of Present Illness History of Present Illness Date Patient Seen: 10/25/22 Time Patient Seen: 08:19 Chief complaint: SDC Narrative: The patient presents for colorectal screening. They have never had any previous examination for such. No personal or family history of colon cancer. On further history denies any recent gastrointestinal symptoms. No nausea, vomiting, abdominal pain, loss of appetite, unexplained weight loss, change in bowel habits, diarrhea, constipation, melena, hematochezia, or bright red blood per rectum. Patient History Medical History Asthma Chicken pox Chronic back pain (~1986) Fatigue Fractures (~1979) Hay fever Headache (~2013) Hearing loss (~1989) Left wrist pain Lumbar spondylosis Measles Mumps Post traumatic stress disorder (PTSD) (~1989) Shoulder pain (~1979) Skin rash (~1979) Tinnitus Vision disorder Weight loss Surgical History Anesthesia History of ear surgery History of shoulder surgery (~2013) History of vasectomy (~2002) Family & Social History Family History Father Cancer Leukemia Mother Hypertension COPD (chronic obstructive pulmonary disease) Brother Heart disease Hypertension Mental health problem Sister Heart disease Seizure in childhood Grandfather Lung cancer Leukemia Social History: household members spouse lives independently Yes caregiver/support person No Tobacco & Substance use: Smoking Status Never smoker alcohol intake current alcohol intake frequency 0-2 drinks per day Substance Use Type does not use Meds Home Medications and Allergies Home Medications Medication Instructions Recorded Confirmed Type ibuprofen 800 mg tablet 800 mg PO Q8H #180 tabs 11/23/21 10/25/22 Rx Allergies Allergy/AdvReac Type Severity Reaction Status Date / Time No Known Drug Allergies Allergy Verified 10/25/22 08:11 Exam Vital Signs (past 8 hours): - 10/25/22 08:04 10/25/22 08:13 Temperature 98.4 F 98 F Pulse Rate 65 65 Respiratory Rate 18 18 Blood Pressure 136/76 136/76 Pulse Oximetry 100 100 Oxygen Delivery Method Room Air Room Air Oxygen Delivery Method Room Air Narrative Exam Narrative: General adult man alert oriented no acute distress Chest nonlabored respiration Extremities warm well perfused Assessment & Plan Assessment & Plan narrative: The patient requires colorectal screening and colonoscopy is recommended. Technical details were discussed. Risks, benefits, alternatives explained. Risks including but not limited to myocardial infarction, aspiration, bleeding, pain, missed lesion, incomplete examination, need for further radiographic studies, colonic perforation, and need for major abdominal surgery were discussed. All questions were answered to their satisfaction, and they are in agreement with this plan. Time Spent With Patient Critical Care time: I spent a total of [] minutes of critical care time on this patient's care today; this time is exclusive of procedural time.
--- NOTE | 2022-10-25 08:20 | PM.OP.COLON ---
Operative Date/Time/Diagnoses Date of procedure: 10/25/22 Time of procedure: 08:20 Pre-op diagnosis: Colorectal screening Post-op diagnosis: same Procedure & Clinicians Study performed: Colonoscopy Same procedure as scheduled: Yes Indications: Colorectal screening Surgeon: Jaron Still Procedure Notes Procedure in detail: The history and physical was performed/updated and the patient is ASA class is 1. The procedure was discussed in detail with the patient. Potential risks complications including infection, bleeding, missed diagnosis, perforation, need for surgery, and were explained. Their questions were answered and informed consent was obtained. Patient was brought to the procedure room and placed standard monitoring equipment. The patient's vital signs were monitored continuously throughout the entire procedure. Prior to starting time-out was performed. The patient was placed in the left lateral recumbent position. Procedural sedation was administered by anesthesia. Examination began with a thorough inspection of the perianal area there was no evidence of fissures, fistulae, external hemorrhoids or cutaneous malignancy. The colonoscopy scope was then placed into the anal canal and was advanced to the cecum, which was identified by the ileocecal valve, the appendiceal orifice and the confluence of the taenia. The scope was then slowly withdrawn examining colon thoroughly in all directions, irrigating it of any residual stool. FINDINGS 1. Transverse colon. Two 3-5 mm polyps removed with biopsy forceps 2. Sigmoid colon mild diverticulosis The patient tolerated the procedure well. They will be discharged once criteria are met. The prep was of good/excellent quality. The withdrawl time was 6 minutes. Specimen(s): other (Transverse colonic polyps) Impression: Colonic polyps Post-procedure Recommendations: High fiber diet Plan for aftercare: Follow-up dependent on pathology findings Disposition: same day surgery
[2022-10-25 09:17] VITALS: BP 89/61; PULSE 55; RESP 13; TEMP 36.5; O2SAT 97
[2022-10-25 09:22] VITALS: BP 96/54; PULSE 66; RESP 13; O2SAT 98
[2022-10-25 09:26] VITALS: BP 111/73; PULSE 52; RESP 12; TEMP 36.3; O2SAT 98
[2022-10-25 09:31] VITALS: BP 114/71; PULSE 49; RESP 14; TEMP 36.5; O2SAT 98
== END 2022-10-25 09:43 | disposition home or self-care (01) ==
PROVIDERS: PCP Family Medicine; Referring Provider Surgery; Visit Provider Surgery
PROC: 0DJD8ZZ Inspection of Lower Intestinal Tract, Via Natural or Artificial Opening Endoscopic (ICD-10-PCS; CPT 45378; principal; 2022-10-25 08:45)
DX: Z12.11 Encounter for screening for malignant neoplasm of colon (principal); K57.30 Diverticulosis of large intestine without perforation or abscess without bleeding; D12.3 Benign neoplasm of transverse colon
CPT/HCPCS: 45380; J2704; J3010

== ENCOUNTER → 2023-06-19 13:18 | Outpatient (CLI) | payer OTHER, SELFPAY ==
--- NOTE | 2023-06-19 13:19 | DI.RAD.S_ITS ---
PROCEDURE: XR FOOT RT MIN 3V INDICATIONS: Right foot pain and swelling mid lateral foot TECHNIQUE: 3 views of the foot were acquired. COMPARISON: [facility], CR, XR FOOT RT MIN 3V, 09/21/2020, 6:56. FINDINGS: Bones: No fractures or dislocations. No suspicious bony lesions. Mild degenerative joint disease at the 1st tarsometatarsal joint and 1st metatarsophalangeal joint. Soft tissues: No tibiotalar joint effusion. There is calcification in the distal Achilles tendon at the Achilles tendon insertion consistent with enthesopathy. IMPRESSION: 1. Mild degenerative joint disease. 2. Achilles enthesopathy. Dictated by: Gregorio Parnell M.D. on 06/19/2023 at 14:36 Approved by: Gregorio Parnell M.D. on 06/19/2023 at 14:38
== END ==
PROVIDERS: PCP Family Medicine; Referring Provider Physician Assistant; Visit Provider Physician Assistant
DX: M19.071 Primary osteoarthritis, right ankle and foot (principal); M76.61 Achilles tendinitis, right leg; M79.671 Pain in right foot
CPT/HCPCS: 73630

== ENCOUNTER → 2023-06-27 06:10 | Outpatient (CLI) | payer OTHER, SELFPAY ==
--- NOTE | 2023-06-27 06:13 | DI.RAD.S_ITS ---
PROCEDURE: XR HIP W PEL IF DONE RT 2V INDICATIONS: rt hip pain TECHNIQUE: AP pelvis with lateral view(s) of the right hip(s). COMPARISON: None. FINDINGS: Bones: No fractures or dislocations. Pelvic ring appears intact. No suspicious bony lesions. Mild joint space narrowing and marginal spurring of the right greater than left hips. Soft tissues: The visualized bowel gas pattern is normal. No suspicious soft tissue calcifications. IMPRESSION: No acute osseous abnormality. Mild degenerative changes of the right greater than left hips. Dictated by: Micha Chadwick M.D. on 06/27/2023 at 9:12 Approved by: Micha Chadwick M.D. on 06/27/2023 at 9:12
--- NOTE | 2023-06-27 06:13 | DI.RAD.S_ITS ---
PROCEDURE: XR CERVICAL SPINE 2V OR 3V INDICATIONS: cervical pain TECHNIQUE: 4 view(s) of the cervical spine were acquired. COMPARISON: None. FINDINGS: Bones: No fractures or dislocations to the C7 level. The lateral masses of C1 appear intact on the odontoid view. Loss of lordosis which could be related to muscle spasm, rigidity or simply positional. No suspicious bony lesions. Mild degenerative changes with facet and uncovertebral arthropathy. Soft tissues: No prevertebral soft tissue swelling. IMPRESSION: Mild degenerative changes of the cervical spine. Dictated by: Micha Chadwick M.D. on 06/27/2023 at 9:12 Approved by: Micha Chadwick M.D. on 06/27/2023 at 9:13
--- NOTE | 2023-06-27 06:13 | DI.RAD.S_ITS ---
PROCEDURE: XR LUMBAR SPINE 2-3V INDICATIONS: lumbar pain TECHNIQUE: 3 views of the lumbar spine were acquired. COMPARISON: [facility], CR, XR LUMBAR SPINE 2-3V, 03/14/2022, 13:08. [facility], CR, XR LUMBAR SPINE 2-3V, 11/23/2021, 15:37. FINDINGS: Bones: 5 sre-bey-lgmciko vertebrae are present. There is normal bony alignment. Disc height loss at L5-S1. Facet arthropathy, worse at L4-5 and L5-S1. Mild multilevel degenerative endplate changes and anterior osteophytosis. No vertebral body compression fractures. No suspicious bony lesions. Soft tissues: Overlying bowel gas pattern is normal. No suspicious soft tissue calcifications. IMPRESSION: Multilevel degenerative changes of the lumbar spine. Dictated by: Micha Chadwick M.D. on 06/27/2023 at 9:09 Approved by: Micha Chadwick M.D. on 06/27/2023 at 9:11
[2023-06-27 08:24] LABS: Add Manual Diff / Slide Review NO; Basophils Absolute Auto 0 /uL (0-100); Basophils Percent Auto 0.7 % (0-2); Eosinophils Absolute Auto 200 /uL (0-450); Eosinophils Percent Auto 4.3 % (2-4); Hematocrit 38.5 % (41-53); Hemoglobin 13.6 g/dL (13.5-17.5); Lymphocytes Absolute Auto 1500 /uL (1100-4500); Lymphocytes Percent Auto 37.8 % (25-40); Mean Corpuscular HGB Conc 35.4 % (30-36); Mean Corpuscular Hemoglobin 32.6 PG (26-34); Mean Corpuscular Volume 92.1 fL (80-100); Monocytes Absolute Auto 400 /uL (0-900); Monocytes Percent Auto 8.9 % (3-14); Neutrophils Absolute Auto 1900 /uL (1500-7000); Neutrophils Percent Auto 48.3 % (50-75); Platelet Count 308 X10^3/uL (150-400); Red Blood Cell Count 4.18 X10^6/uL (4.5-5.9); Red Cell Distribution Width 12.7 % (11.6-14.8)
[2023-06-27 08:44] LABS: Alanine Aminotransferase 16 IU/L (<50); Albumin 4.2 g/dL (3.5-5.0); Albumin Globulin Ratio 1.6 (1.0-2.8); Alkaline Phosphatase 54 U/L (38-126); Aspartate Aminotransferase 29 IU/L (17-59); BUN Creatinine Ratio 13.6 (6-22); Bilirubin Total 0.4 mg/dL (0.2-1.3); Blood Urea Nitrogen 12 mg/dL (9-20); Calcium 9.3 mg/dL (8.4-10.2); Carbon Dioxide 28 mmol/L (22-32); Chloride 103 mmol/L (98-107); Cholesterol 152 mg/dL (140-199); Estimated Glomerular Filt Rate > 60 mL/min (>60); Globulin 2.7 g/dL (1.7-4.1); Glucose 92 mg/dL (80-110); HDL Cholesterol 49 mg/dL (40-60); HEMOLYSIS < 15 (0-50); LDL Cholesterol Calculated 87 mg/dL (<100); Potassium 4.5 mmol/L (3.4-5.1); Sodium 138 mmol/L (137-145); Total Protein 6.9 g/dL (6.3-8.2); Triglycerides 79 mg/dL (35-150)
[2023-06-27 08:49] LABS: High Sensitivity CRP - Cardiac 2.1 mg/L (1.0-3.0)
[2023-06-27 08:51] LABS: Rheumatoid Factor < 8.6 IU/mL (<12.0)
[2023-06-27 09:14] LABS: Prostate Specific Antigen Scrn 3.55 ng/mL (0.1-4.0)
[2023-06-27 09:17] LABS: Testosterone 458 ng/dL (71.8-623)
[2023-06-27 09:30] LABS: Appearance Urine UA CLEAR; Bilirubin Urine UA NEGATIVE (NEGATIVE); Color Urine UA YELLOW; Glucose Urine UA NEGATIVE (Negative); Ketones Urine UA NEGATIVE (NEGATIVE); Leukocyte Esterase Urine UA NEGATIVE (NEGATIVE); Nitrite Urine UA NEGATIVE (Negative); Occult Blood Urine UA NEGATIVE (Negative); Protein Urine UA NEGATIVE (Negative); Specific Gravity Urine UA <=1.005 (1.000-1.035); Urobilinogen Urine UA 0.2 E.U./dL (0.2)
[2023-06-27 09:35] LABS: Hep C Virus Ab w/Reflex Quant NEGATIVE s/c (NEGATIVE)
[2023-06-27 09:42] LABS: Bacteria Urine None Seen; Culture Indicated Urine Cult Not Indicated; RBC Urine None Seen (0-5/HPF); Squamous Epithelial Cell Urine None Seen (0-5/HPF); WBC Urine None Seen (0-5/HPF)
== END ==
PROVIDERS: PCP Family Medicine; Referring Provider Pediatrics; Visit Provider Pediatrics
DX: Z00.00 Encounter for general adult medical examination without abnormal findings (principal); M47.816 Spondylosis without myelopathy or radiculopathy, lumbar region; M47.817 Spondylosis without myelopathy or radiculopathy, lumbosacral region; M47.812 Spondylosis without myelopathy or radiculopathy, cervical region; M25.559 Pain in unspecified hip; M54.2 Cervicalgia; M25.50 Pain in unspecified joint; R53.83 Other fatigue; R93.7 Abnormal findings on diagnostic imaging of other parts of musculoskeletal system; Z12.5 Encounter for screening for malignant neoplasm of prostate
CPT/HCPCS: 36415; 72040; 72100; 73502; 80053; 80061; 81001; 84403; 85025; 86140; 86430; 86803; G0103

== ENCOUNTER → 2023-07-03 07:34 | Outpatient (CLI) | payer OTHER, SELFPAY ==
--- NOTE | 2023-07-03 07:37 | DI.MRI.S_ITS ---
PROCEDURE: MR FOOT RT WO CON INDICATIONS: abnormal bony mass right foot, assess structure TECHNIQUE: Noncontrast sagittal T1 spin echo and T2 fast spin echo with fat saturation, long-axis T1 spin echo and T2 fast spin echo with fat saturation, short-axis T1 spin echo and T2 fast spin echo with fat saturation through the forefoot. COMPARISON: None. FINDINGS: Image quality: Excellent. Bones and joints: Fiducial marker is seen over dorsal aspect of 5th toe at the level of 5th metatarsal base. Osteoarthritic changes are noted throughout midfoot and forefoot joints most notably involving 1st MTP joint with joint space narrowing, subchondral sclerosis and small subcortical cystic changes. No fracture or dislocation. No metatarsal stress fractures. Soft tissues: The visualized plantar foot muscles demonstrate normal signal and bulk. Visualized flexor and extensor tendons appear intact, without tenosynovitis. The distal insertions of the peroneus brevis and longus tendons appear intact. The principal Lisfranc ligament appears intact. Possible tiny ganglion cyst measures 6 mm in size over dorsal aspect of 5th TMT joint is seen series 11, image 45 and series 9, image 23. Sagittal images demonstrate no evidence for plantar plate tears. IMPRESSION: 1. Mild midfoot and forefoot joint osteoarthritis most notably at 1st MTP joint. No fracture or dislocation. No suspicious bony lesions. No metatarsal stress fractures. 2. Extensor and flexor tendons of midfoot and forefoot are grossly intact. Lisfranc ligament is intact. 3. Possible tiny 6 mm ganglion cyst over dorsal aspect of 5th TMT joint. Dictated by: Shayan Clayton M.D. on 07/03/2023 at 11:24 Approved by: Shayan Clayton M.D. on 07/03/2023 at 11:27
== END ==
PROVIDERS: PCP Family Medicine; Referring Provider Pediatrics; Visit Provider Pediatrics
DX: M19.071 Primary osteoarthritis, right ankle and foot (principal); R29.91 Unspecified symptoms and signs involving the musculoskeletal system; M79.671 Pain in right foot
CPT/HCPCS: 73718

== ENCOUNTER → 2023-08-19 13:21 | Outpatient (CLI) | payer OTHER, SELFPAY ==
--- NOTE | 2023-08-19 13:22 | DI.MRI.S_ITS ---
PROCEDURE: MR LUMBAR SPINE WO CON INDICATIONS: Radiculopathy, lumbar region TECHNIQUE: Noncontrast sagittal T1 spin echo and T2 fast echo, sagittal STIR, and T2 fast spin echo through the lumbar spine. In cases with scoliosis, additional coronal T2 fast spin echo may be performed. COMPARISON: [facility], MR, MR LUMBAR SPINE WO CON, 06/09/2022, 8:15. FINDINGS: Image quality: Excellent. Alignment and Curvature: There is normal bony alignment. Bone Marrow: Marrow is of normal overall signal. No acute vertebral body compression fractures. Spinal Cord: Conus medullaris terminates at the L1 level. Visualized cord demonstrates normal signal and size. Paraspinous Soft Tissues: No paravertebral masses. T12-L1: Mild disc desiccation and height loss. No canal stenosis. No foraminal stenosis. L1-L2: Moderate disc desiccation and height loss. Broad-based disc bulge. Mild facet ligamentum flavum hypertrophy. No canal stenosis. Mild bilateral foraminal stenosis. Findings are unchanged when compared with the prior study. L2-L3: Moderate disc desiccation and height loss. Broad-based disc bulge. Mild facet ligamentum flavum hypertrophy. Mild canal stenosis. No foraminal stenosis. Findings are unchanged from the prior study. L3-L4: Mild disc desiccation and height loss. Mild facet ligamentum flavum hypertrophy. No canal stenosis. Mild bilateral foraminal stenosis. Findings are similar to the prior study. L4-L5: Mild to moderate disc desiccation and height loss. Broad-based disc bulge. Moderate facet ligamentum flavum hypertrophy. Mild canal stenosis. Moderate bilateral neural foraminal stenosis. There is a small focal posterior high-intensity zone as before. Findings are unchanged from the prior study. L5-S1: Moderate disc desiccation and height loss. Broad-based disc bulge. Mild facet sclerosis. No canal stenosis. Mild bilateral neural foraminal stenosis. Small posterior focal high-intensity zone as before. Findings are unchanged. IMPRESSION: 1. Small annular fibrosis tears posteriorly at L4-5 and L5-S1, likely unchanged from the prior study. 2. Mild canal stenosis and moderate bilateral foraminal stenosis redemonstrated at L4-5. Dictated by: Sierra Nguyen M.D. on 08/21/2023 at 11:23 Approved by: Sierra Nguyen M.D. on 08/21/2023 at 11:29
== END ==
PROVIDERS: PCP Family Medicine; Referring Provider Orthopaedic Surgery Adult Reconstructive Orthopaedic Surgery; Visit Provider Orthopaedic Surgery Adult Reconstructive Orthopaedic Surgery
DX: M54.16 Radiculopathy, lumbar region (principal); M51.36 Other intervertebral disc degeneration, lumbar region; M48.061 Spinal stenosis, lumbar region without neurogenic claudication; M51.37 Other intervertebral disc degeneration, lumbosacral region
CPT/HCPCS: 72148

== ENCOUNTER → 2024-01-04 07:53 | Outpatient (CLI) | payer OTHER, SELFPAY ==
--- NOTE | 2024-01-04 07:55 | DI.MRI.S_ITS ---
PROCEDURE: MR HIP RT WO CON INDICATIONS: Worsening hip pain with worsening numbness of R leg TECHNIQUE: Noncontrast coronal T1 spin echo and STIR through the bony pelvis. Coronal and axial T2 fast spin echo with fat saturation, sagittal T1 spin echo, and oblique axial T2 fast spin echo with fat saturation through the hip. COMPARISON: [facility], CR, XR HIP W PEL IF DONE RT 2V, 01/04/2024, 10:35. FINDINGS: Image quality: Excellent. Bones and joints: Bone marrow of the pelvic ring and proximal femurs show normal signal throughout. No intraosseous lesions or fractures. No avascular necrosis of the femoral head. Disc desiccation and facet hypertrophy are seen in the included lumbar spine. Tendons and ligaments: Mild distal gluteus medius and minimus tendinosis. Small amount of trochanteric bursal fluid is present. The proximal iliotibial band appears intact. The iliopsoas tendon appears intact, without adjacent bursal fluid collections. The origin of the hamstring tendon demonstrates mild tendinosis. The tendons for the direct and indirect heads of the rectus femoris muscle appear intact. Labrum and cartilage: There is diffuse labral degeneration without a discrete tear. Full-thickness cartilage loss is seen at the superolateral aspect of the hip with subchondral cystic changes and marginal osteophytes. There is mild partial-thickness cartilage irregularity in the remainder of the hip. There is normal morphology of the femoral head and acetabulum. Soft tissues: Visualized muscles demonstrate normal bulk and internal signal. Quadratus femoris muscle demonstrates no internal edema to suggest ischiofemoral impingement. The proximal sciatic neurovascular bundle appears normal adjacent to the hamstring tendons. Pelvic soft tissues demonstrate no acute abnormality. IMPRESSION: 1. Focal full-thickness cartilage loss at the superior aspect of the right hip with subchondral cystic changes as well as background grade 2 chondromalacia and marginal osteophytes. 2. Diffuse labral degeneration without a discrete tear. 3. Mild distal right gluteus medius and minimus tendinosis. 4. Mild proximal hamstring tendinosis. 5. Degenerative changes are noted in the included lumbar spine. Approved by: Cooper Clarke M.D. on 01/04/2024 at 20:51
--- NOTE | 2024-01-04 07:55 | DI.MRI.S_ITS ---
PROCEDURE: MR LUMBAR SPINE WO CON INDICATIONS: Worsening numbness of legs, f/u on 08/19 imaging TECHNIQUE: Noncontrast sagittal T1 spin echo and T2 fast echo, sagittal STIR, and T2 fast spin echo through the lumbar spine. In cases with scoliosis, additional coronal T2 fast spin echo may be performed. COMPARISON: [facility], CR, XR LUMBAR SPINE 2-3V, 06/27/2023, 6:43. [facility], CR, XR HIP W PEL IF DONE RT 2V, 06/27/2023, 6:43. [facility], MR, MR LUMBAR SPINE WO CON, 08/19/2023, 13:26. [facility], MR, MR LUMBAR SPINE WO CON, 06/09/2022, 8:15. [facility], MR, MR LUMBAR SPINE WO CON, 02/22/2022, 8:26. FINDINGS: Image quality: Excellent. Alignment and Curvature: There is normal bony alignment. Bone Marrow: Marrow is of normal overall signal. No acute vertebral body compression fractures. Spinal Cord: Conus medullaris terminates at the L1 level. Visualized cord demonstrates normal signal and size. Paraspinous Soft Tissues: No paravertebral masses. T12-L1: Normal appearance. L1-L2: The disc height is well-preserved. Loss of disc signal is seen at this level. Bridging anterior osteophytes are seen. Mild generalized disc bulge is seen. Mild facet joint hypertrophy is seen. There is minimal left-sided and no right-sided neural foraminal narrowing. No significant central canal narrowing is seen. When comparison is made with the prior images, these findings are similar. L2-L3: The disc height is well-preserved. Loss of disc signal is seen at this level. Moderate generalized disc bulge is seen. There is a superimposed central disc protrusion. Mild facet joint hypertrophy is seen. Moderate bilateral neural foraminal narrowing is seen, left worse than right. Moderate central canal narrowing is seen. When comparison is made with the prior images, these findings are similar. L3-L4: The disc height and disk signal are well-preserved. Mild to moderate disc bulge is seen, which is slightly eccentric to the right. Moderate bilateral neural foraminal narrowing is seen. Mild to moderate central canal narrowing is seen. When comparison is made with the prior images, these findings are similar. L4-L5: The disc height is well-preserved. Loss of disc signal is seen at this level. Moderate generalized disc bulge is seen. There is a superimposed central disc protrusion. There is a focal annular fissure seen posteriorly. Moderate facet joint hypertrophy is seen. There is at least moderate bilateral neural foraminal narrowing seen. Moderate central canal narrowing is seen. When comparison is made with the prior images, these findings are similar. L5-S1: Moderate loss of disc height is seen. Loss of disc signal is seen. Mild to moderate disc bulge is seen, with a central disc protrusion. There is a focal annular fissure seen posteriorly. Mild facet joint hypertrophy is seen. Moderate bilateral neural foraminal narrowing is seen. No significant central canal narrowing is seen. No significant change from the prior. IMPRESSION: Multiple levels of lumbar spine degenerative change can be seen, which are not progressed compared to the prior recent MRI images. Dictated by: Sam Lundy M.D. on 01/04/2024 at 10:05 Approved by: Sam Lundy M.D. on 01/04/2024 at 10:10
--- NOTE | 2024-01-04 10:21 | DI.RAD.S_ITS ---
PROCEDURE: XR HIP W PEL IF DONE RT 2V INDICATIONS: pain TECHNIQUE: 2 views of the hip were acquired. COMPARISON: [facility], CR, XR HIP W PEL IF DONE RT 2V, 06/27/2023, 6:43. FINDINGS: Bones: No fractures or dislocations. No suspicious bony lesions. The visualized pelvic ring appears intact. Mild joint space narrowing and marginal spurring of the right greater than left hips. Soft tissues: No suspicious soft tissue calcifications or masses. IMPRESSION: No acute bony abnormality. Mild right greater than left hip osteoarthrosis. If symptoms persist with conservative management, consider cross-sectional imaging such as CT or MRI. Approved by: Aleida Moore M.D. on 01/04/2024 at 11:30
--- NOTE | 2024-01-04 10:21 | DI.RAD.S_ITS ---
PROCEDURE: XR FEMUR RT MIN 2V INDICATIONS: pain TECHNIQUE: 4 views of the femur were acquired. COMPARISON: None. FINDINGS: Bones: No fractures or dislocations. No suspicious bony lesions. Mild right hip osteoarthrosis. Right knee chondrocalcinosis. Soft tissues: No suspicious soft tissue calcifications or masses. IMPRESSION: No acute osseous abnormality. Mild right hip osteoarthrosis. Right knee chondrocalcinosis. If symptoms persist with conservative management, consider cross-sectional imaging such as CT or MRI. Approved by: Aleida Moore M.D. on 01/04/2024 at 11:29
== END ==
PROVIDERS: PCP Family Medicine; Referring Provider Family Medicine; Visit Provider Family Medicine
DX: M47.816 Spondylosis without myelopathy or radiculopathy, lumbar region (principal); M47.817 Spondylosis without myelopathy or radiculopathy, lumbosacral region; M16.0 Bilateral primary osteoarthritis of hip; M94.251 Chondromalacia, right hip; M25.551 Pain in right hip; M11.261 Other chondrocalcinosis, right knee; R20.0 Anesthesia of skin; R93.7 Abnormal findings on diagnostic imaging of other parts of musculoskeletal system; R20.2 Paresthesia of skin
CPT/HCPCS: 72148; 73502; 73552; 73721

== ENCOUNTER → 2024-01-06 07:31 | Outpatient (CLI) | payer OTHER, SELFPAY ==
--- NOTE | 2024-01-06 07:32 | DI.RAD.S_ITS ---
PROCEDURE: XR HIP W PEL IF DONE LT 2V INDICATIONS: Recent fall with LLE pain TECHNIQUE: 2 views of the hip were acquired. COMPARISON: [facility], CR, XR HIP W PEL IF DONE RT 2V, 01/04/2024, 10:35. FINDINGS: Bones: No fractures or dislocations. No suspicious bony lesions. The visualized pelvic ring appears intact. Mild bilateral hip joint degeneration. Soft tissues: No suspicious soft tissue calcifications or masses. IMPRESSION: No acute bony abnormality. Mild bilateral hip joint degeneration. If symptoms persist with conservative management, consider cross-sectional imaging such as CT or MRI. Approved by: Aleida Moore M.D. on 01/07/2024 at 23:42
--- NOTE | 2024-01-06 07:32 | DI.RAD.S_ITS ---
PROCEDURE: XR FEMUR LT MIN 2V INDICATIONS: Recent fall with LLE pain TECHNIQUE: 4 views of the femur were acquired. COMPARISON: [facility], CR, XR FEMUR RT MIN 2V, 01/04/2024, 10:35. FINDINGS: Bones: No fractures or dislocations. No suspicious bony lesions. Soft tissues: No suspicious soft tissue calcifications or masses. IMPRESSION: No acute bony abnormality. Approved by: Aleida Moore M.D. on 01/07/2024 at 23:43
== END ==
PROVIDERS: PCP Family Medicine; Referring Provider Family Medicine; Visit Provider Family Medicine
DX: M79.605 Pain in left leg (principal); M25.552 Pain in left hip; M16.0 Bilateral primary osteoarthritis of hip
CPT/HCPCS: 73502; 73552

== ENCOUNTER → 2024-01-22 15:46 | Outpatient (CLI) | payer OTHER, SELFPAY ==
--- NOTE | 2024-01-22 15:48 | DI.RAD.S_ITS ---
PROCEDURE: XR KNEE RT 3V INDICATIONS: chronic right knee pain TECHNIQUE: 3 views of the knee were acquired. COMPARISON: None. FINDINGS: Bones: No fractures or dislocations. No suspicious bony lesions. Tricompartmental joint space narrowing with associated osteophytosis. Soft tissues: Moderate joint effusion. No suspicious soft tissue calcifications. Chondrocalcinosis. IMPRESSION: Kdoe-[id number] tricompartmental osteoarthritis. Kellgren-Victor Manuel Grade 2. Chondrocalcinosis, which can be seen in the setting of CPPD, aging, and parathyroid disorders. Moderate knee joint effusion. Dictated by: Jerome Green M.D. on 01/22/2024 at 16:33 Approved by: Jerome Green M.D. on 01/22/2024 at 16:34
== END ==
PROVIDERS: PCP Family Medicine; Referring Provider Family Medicine; Visit Provider Family Medicine
DX: M17.11 Unilateral primary osteoarthritis, right knee (principal); M25.461 Effusion, right knee; M25.561 Pain in right knee; M47.816 Spondylosis without myelopathy or radiculopathy, lumbar region; M54.41 Lumbago with sciatica, right side; G89.29 Other chronic pain; M11.261 Other chondrocalcinosis, right knee
CPT/HCPCS: 73562

== ENCOUNTER → 2024-01-24 07:21 | Outpatient (CLI) | payer OTHER, SELFPAY ==
[2024-01-24 07:43] LABS: Add Manual Diff / Slide Review NO; Basophils Absolute Auto 100 /uL (0-100); Basophils Percent Auto 0.8 % (0-2); Eosinophils Absolute Auto 200 /uL (0-450); Eosinophils Percent Auto 4.1 % (2-4); Hematocrit 36.6 % (41-53); Hemoglobin 12.7 g/dL (13.5-17.5); Lymphocytes Absolute Auto 1500 /uL (1100-4500); Lymphocytes Percent Auto 24.8 % (25-40); Mean Corpuscular HGB Conc 34.6 % (30-36); Mean Corpuscular Hemoglobin 31.3 PG (26-34); Mean Corpuscular Volume 90.3 fL (80-100); Monocytes Absolute Auto 500 /uL (0-900); Monocytes Percent Auto 8.3 % (3-14); Neutrophils Absolute Auto 3800 /uL (1500-7000); Platelet Count 285 X10^3/uL (150-400); Red Blood Cell Count 4.05 X10^6/uL (4.5-5.9); Red Cell Distribution Width 13.8 % (11.6-14.8); White Blood Cell Count 6.1 X10^3/uL (4.5-11.0)
[2024-01-24 07:56] LABS: Erythrocyte Sedimentation Rate 6 MM/HR (0-15)
[2024-01-24 08:13] LABS: Alanine Aminotransferase 11 IU/L (<50); Albumin Globulin Ratio 1.4 (1.0-2.8); Alkaline Phosphatase 64 U/L (38-126); Aspartate Aminotransferase 23 IU/L (17-59); BUN Creatinine Ratio 12.8 (6-22); Bilirubin Total 0.6 mg/dL (0.2-1.3); Blood Urea Nitrogen 12 mg/dL (9-20); C-Reactive Protein Quant 0.6 mg/dL (<1.0); Calcium 9.2 mg/dL (8.4-10.2); Carbon Dioxide 27 mmol/L (22-32); Chloride 108 mmol/L (98-107); Estimated Glomerular Filt Rate > 60 mL/min (>60); Globulin 2.8 g/dL (1.7-4.1); Glucose 90 mg/dL (80-110); HEMOLYSIS < 15 (0-50); Potassium 4.5 mmol/L (3.4-5.1); Sodium 140 mmol/L (137-145); Total Protein 6.8 g/dL (6.3-8.2); Uric Acid 5.2 mg/dL (3.5-8.5)
[2024-01-27 12:09] LABS: Calcium 8.9 mg/dL (8.6-10.2); Parathyroid Hormone, Intact 31 pg/mL (15-65)
== END ==
PROVIDERS: PCP Family Medicine; Referring Provider Family Medicine; Visit Provider Family Medicine
DX: M25.50 Pain in unspecified joint (principal); M25.461 Effusion, right knee; M25.561 Pain in right knee; G89.29 Other chronic pain; M11.20 Other chondrocalcinosis, unspecified site
CPT/HCPCS: 36415; 80053; 82310; 83970; 84550; 85025; 85651; 86140

== ENCOUNTER → 2024-02-06 13:05 | Outpatient (CLI) | payer OTHER, SELFPAY ==
--- NOTE | 2024-02-06 13:06 | DI.MRI.S_ITS ---
PROCEDURE: MR KNEE RT WO CON INDICATIONS: right knee pain chronic TECHNIQUE: Noncontrast sagittal PD fast spin echo and T2 fast spin echo with fat saturation, sagittal 3-D FLASH with fat saturation; coronal T1 spin echo and PD fast spin echo with fat saturation, and axial PD fast spin echo with fat saturation through the knee. COMPARISON: None. FINDINGS: Image quality: Excellent. Menisci: Subtle oblique tear involving posterior horn of medial meniscus is seen extending to inferior articulating surface. Oblique tear involving anterior horn and posterior horn of lateral meniscus is also seen extending to inferior articulating surface. The meniscal root ligaments appear intact. Cruciate ligaments: The anterior cruciate ligament is thickened with intrasubstance T2 hyperintense signal. The posterior cruciate ligament is intact. Medial structures: The medial collateral ligament appears thickened with adjacent soft tissue edema and intrasubstance T2 hyperintense signal. Visualized portions of the pes anserinus tendons appear normal. No abnormal bursal fluid. Lateral structures: The lateral collateral ligament is mildly thickened. The long and short heads of the biceps femoris tendon appear intact. The popliteus tendon appears normal. Iliotibial band appears normal. Anterior structures: The quadriceps and patellar tendons appear intact. Patellar alignment is normal. No femoral trochlear dysplasia or ventral trochlear prominence. No edema in the infrapatellar fat pad. Bones and cartilage: No bone marrow contusions or fractures. Mxzw-ty-knsyumgz tricompartmental osteoarthritis and chondromalacia is seen more notably in medial and lateral femoral tibial compartments. Joint space: There is moderate knee joint fluid. There is a tiny popliteal cyst. Normal appearing synovial plicae are incidentally noted. IMPRESSION: 1. Oblique tear involving posterior horn of medial meniscus extending to inferior articulating surface. Oblique tear involving anterior horn and posterior horn of lateral meniscus extending to inferior articulating surface. 2. Sprain/low-grade intrasubstance partial-thickness tear involving ACL. No ACL rupture. The PCL is intact. 3. Low-grade MCL sprain/intrasubstance partial-thickness tear. Low-grade LCL sprain. 4. Qlbz-br-adgqbuhr tricompartmental osteoarthritis and low-grade chondromalacia more notably in medial and lateral femoral tibial compartments. No fracture or dislocation. Moderate joint effusion, no gross loose bodies. Tiny popliteal cyst. Dictated by: Shayan Clayton M.D. on 02/06/2024 at 15:54 Approved by: Shayan Clayton M.D. on 02/06/2024 at 15:58
== END ==
PROVIDERS: PCP Family Medicine; Referring Provider Family Medicine; Visit Provider Family Medicine
DX: S83.241A Other tear of medial meniscus, current injury, right knee, initial encounter (principal); S83.281A Other tear of lateral meniscus, current injury, right knee, initial encounter; S83.411A Sprain of medial collateral ligament of right knee, initial encounter; S83.511A Sprain of anterior cruciate ligament of right knee, initial encounter; S83.421A Sprain of lateral collateral ligament of right knee, initial encounter; M17.11 Unilateral primary osteoarthritis, right knee; M25.461 Effusion, right knee; M94.261 Chondromalacia, right knee; M11.20 Other chondrocalcinosis, unspecified site; M25.561 Pain in right knee; M47.26 Other spondylosis with radiculopathy, lumbar region; M48.061 Spinal stenosis, lumbar region without neurogenic claudication; G89.29 Other chronic pain
CPT/HCPCS: 73721; 99214

== ENCOUNTER 2024-04-02 08:08 | Emergency (ER) | payer OTHER, SELFPAY ==
[2024-04-02 08:15] VITALS: BP 131/74; PULSE 53; RESP 16; TEMP 36.7; O2SAT 99; BMI 24.5
--- NOTE | 2024-04-02 09:08 | ED_ITS ---
HPI - Skin/Abscess/Foreign Bdy General Chief complaint: Skin/Abscess/Foreign Body Stated complaint: swelling & redness L arm, poss infection per pt Time Seen by Provider: 04/02/24 08:37 Source: patient Mode of arrival: Family Vehicle Limitations: no limitations History of Present Illness HPI narrative: 63-year-old gentleman with no significant medical history was working in [employer] about 2 weeks ago had a sharp stick peel some skin off his left forearm. With appropriate wound care was healing nicely. He felt that it was entirely healed until yesterday when it began to get increasing red warm and itchy around the healed wound itself. This morning notes there is more erythema over the forearm and extending up over the upper arm. There is no lymphangitic streaking, fluctuance, drainage, adenopathy, fevers. He is scheduled for knee replacement at the end of this month and would prefer to be completely infection free so that that is surgery can take place. Related Data Previous Rx's Medication Instructions Recorded sildenafil 100 mg tablet (Viagra) 50 - 100 mg (0.5 - 1 x 100 mg) PO 08/03/23 DAILY PRN sexual activity #30 tabs Disabled Parking Permit #1 ea 01/22/24 ibuprofen 800 mg tablet 800 mg PO Q8H PRN back 01/22/24 pain/arthritis pain #60 tabs doxycycline hyclate 100 mg capsule 100 mg PO BID #20 caps 04/02/24 Allergies Allergy/AdvReac Type Severity Reaction Status Date / Time gabapentin AdvReac Mild Headache Verified 04/02/24 08:22 tramadol AdvReac Mild Headache Verified 04/02/24 08:22 Review of Systems Review of Systems Narrative: Pertinent positive and negative findings as per HPI Patient History Medical History Lumbar foraminal stenosis Low back pain Lumbar radiculopathy Anemia Right leg paresthesias Abnormal finding of lower extremity Arthritis of foot Foot pain, right Fatigue Neck pain Annual physical exam Polyarthralgia Lumbar spondylosis Weight loss Fatigue Left wrist pain Vision disorder Tinnitus Skin rash (~1979) Hay fever Asthma Post traumatic stress disorder (PTSD) (~1989) Headache (~2013) Shoulder pain (~1979) Fractures (~1979) Chronic back pain (~1986) Mumps Measles Chicken pox Hearing loss (~1989) Surgical History Anesthesia History of vasectomy (~2002) History of shoulder surgery (~2013) History of ear surgery Family History Father Cancer Leukemia Mother Hypertension COPD (chronic obstructive pulmonary disease) Brother Heart disease Hypertension Mental health problem Sister Heart disease Seizure in childhood Grandfather Lung cancer Leukemia Social History marital status: details: laniey Plunkett, lives in [place] household members: spouse lives independently: Yes caregiver/support person: No housing: house education level: college occupational status: employed Smoking Status: Never smoker alcohol intake: current substance use type: does not use Smoking Status: Never smoker alcohol intake frequency: 0-2 drinks per day Substance Use Type: does not use Exam Initial Vital Signs Initial Vital Signs: Vital Signs Temperature 98.0 F 04/02/24 08:15 Pulse Rate 53 L 04/02/24 08:15 Respiratory Rate 16 04/02/24 08:15 Blood Pressure 131/74 04/02/24 08:15 Pulse Oximetry 99 04/02/24 08:15 Oxygen Delivery Method Room Air 04/02/24 08:15 General: Alert appropriate in no acute distress Respiratory: Able to speak in full sentences, no obvious respiratory distress Skin: No obvious rashes, warm and dry Neurologic: Grossly intact no obvious asymmetries or abnormalities Psych: appropriate insight and affect, cooperative Extremity: Left upper extremity has a nicely healed approximately 4 cm wound from the initial branch tearing the skin. There is some minor erythema surrounding this and superficial erythema over the dorsal surface of the forearm and the lower arm. No lymphangitic streaking, no axillary adenopathy Bedside ultrasound shows no evidence of deeper abscess or fluid collection that would require I&D today Course Vital Signs Vital signs: Vital Signs - 8 hr 04/02/24 08:15 Temperature 98.0 F Pulse Rate 53 L Respiratory Rate 16 Blood Pressure 131/74 Pulse Oximetry 99 Oxygen Delivery Method Room Air MDM - Skin/Abscess/Foreign Bdy MDM Narrative Medical decision making narrative: CC: Left arm wound becoming infected Data collected from: patient Differential considered: Superficial infection, retained debris from the tree in the wound, abscess, sepsis Exam documented above, pertinent findings include: Left arm is slightly warm to the touch, increasing erythema over the area with nicely healed wound itself. No abscess confirmed on ultrasound Discussion: Secondary infection after superficial wound from tree scratching his left forearm. Doxycycline for 10 days. No evidence of abscess or infection that would require additional blood work or imaging at this time. Questions are answered he is safe for discharge Discharge Plan Departure Patient Disposition: Home Clinical Impression: Cellulitis of forearm, left Instructions: DI for Cellulitis -- Adult Activity Restrictions/Additional Instructions: Thank you for coming in today There is no abscess appreciated on ultrasound but you certainly do appear to be developing a superficial infection. Please complete 10 days of doxycycline. If you feel like you are getting worse, the wound is enlarging, you are developing fevers or drainage you do need to return to the ER Prescription was electronically transmitted to [facility] in [place] Prescriptions: New doxycycline hyclate 100 mg capsule 100 mg PO BID Qty: 20 0RF No Action sildenafil [Viagra] 100 mg tablet 50 - 100 mg PO DAILY PRN (Reason: sexual activity) Qty: 30 11RF Rx Instructions: take 30 minutes to 4 hours before activity ibuprofen 800 mg tablet 800 mg PO Q8H PRN (Reason: back pain/arthritis pain) Qty: 60 5RF (DME) Disabled Parking Permit See Rx Instructions .ROUTE .MEDSUPPLY Qty: 1 0RF Rx Instructions: I find this patient to be medically disabled and qualified for Disabled Parking as indicated and signed on the accompanying Disabled Parking Application for Individuals. Referrals: Daniel Toussaint MD [Primary Care Provider] - Stand Alone Forms: Patient Portal/API
[2024-04-02] MEDS: DOXYCYCLINE HYCLATE 100 MG TABLET PO (09:24)
== END 2024-04-02 09:27 | disposition home or self-care (01) ==
PROVIDERS: Emergency Provider Emergency Medicine; PCP Family Medicine
DX: L03.114 Cellulitis of left upper limb (principal)
CPT/HCPCS: 99283

== ENCOUNTER → 2025-01-03 10:57 | Outpatient (CLI) | payer OTHER, SELFPAY ==
--- NOTE | 2025-01-03 10:59 | DI.RAD.S_ITS ---
PROCEDURE: XR SHOULDER RT MIN 2V INDICATIONS: chronic right shoulder pain TECHNIQUE: 3 views of the shoulder were acquired. COMPARISON: None. FINDINGS: Bones: No acute fractures or dislocations. No suspicious bony lesions. Visualized ribs appear intact. Rgom-mn-cihwpweb acromioclavicular joint osteoarthrosis. Soft tissues: No suspicious soft tissue calcifications. IMPRESSION: Anvq-lx-kstwotrx acromioclavicular joint osteoarthrosis. Approved by: Cooper Clarke M.D. on 01/03/2025 at 20:10
--- NOTE | 2025-01-03 10:59 | DI.RAD.S_ITS ---
PROCEDURE: XR LUMBAR SPINE 2-3V INDICATIONS: fall with back pain and left leg pain. TECHNIQUE: 3 views of the lumbar spine were acquired. COMPARISON: [facility], CR, XR LUMBAR SPINE 2-3V, 06/27/2023, 6:43. [facility], CR, XR LUMBAR SPINE 2-3V, 03/14/2022, 13:08. FINDINGS: Bones: 5 uwm-puu-qurqqay vertebrae are present. There is normal bony alignment. No vertebral body compression fractures. No suspicious bony lesions. Multilevel disc space narrowing and degenerative endplate changes. Multilevel facet hypertrophy. Soft tissues: Overlying bowel gas pattern is normal. No suspicious soft tissue calcifications. IMPRESSION: 1. No acute osseous abnormality. If symptoms persist or if there is continued clinical concern, cross-sectional imaging such as MRI or CT may be helpful for further evaluation. 2. Moderate multilevel lumbar spondylosis. Approved by: Cooper Clarke M.D. on 01/03/2025 at 20:12
--- NOTE | 2025-01-03 10:59 | DI.RAD.S_ITS ---
PROCEDURE: XR SACRUM COCCYX MIN 2V INDICATIONS: fall with back pain and left leg pain. TECHNIQUE: 3 views of the sacrum and coccyx acquired. COMPARISON: None. FINDINGS: Bones: No acute fractures or dislocations. No suspicious bony lesions. Soft tissues: Visualized bowel gas pattern is normal. No suspicious soft tissue densities. IMPRESSION: No acute osseous abnormality. If symptoms persist or if there is continued clinical concern, cross-sectional imaging such as MRI or CT may be helpful for further evaluation. Approved by: Cooper Clarke M.D. on 01/03/2025 at 20:14
== END ==
LOC: RAD 10:58
PROVIDERS: PCP Family Medicine; Referring Provider Family Medicine; Visit Provider Family Medicine
DX: S76.012A Strain of muscle, fascia and tendon of left hip, initial encounter (principal); M47.26 Other spondylosis with radiculopathy, lumbar region; M48.061 Spinal stenosis, lumbar region without neurogenic claudication; M19.011 Primary osteoarthritis, right shoulder; M25.511 Pain in right shoulder; M54.50 Low back pain, unspecified
CPT/HCPCS: 72100; 72220; 73030

== ENCOUNTER → 2025-04-10 08:42 | Outpatient (CLI) | payer MEDICARE, OTHER, SELFPAY ==
--- NOTE | 2025-04-10 08:44 | DI.RAD.S_ITS ---
PROCEDURE: XR SHOULDER RT MIN 2V INDICATIONS: right shoulder pain TECHNIQUE: Three views of the right shoulder were acquired. COMPARISON: [facility], , XR SHOULDER RT MIN 2V, 01/03/2025, 10:57. FINDINGS: Bones: There are no osseous abnormalities. Acromioclavicular and glenohumeral joints: Mild acromioclavicular degeneration. Glenohumeral joint is normal. Soft tissues: No soft tissue swelling, calcification or mass. IMPRESSION: Mild acromioclavicular degeneration. Dictated by: Carlton Gusman M.D. on 04/11/2025 at 9:42 Approved by: Carlton Gusman M.D. on 04/11/2025 at 9:42
--- NOTE | 2025-04-10 08:44 | DI.RAD.S_ITS ---
PROCEDURE: XR CHEST 2V INDICATIONS: lung crackles TECHNIQUE: 2 views of the chest were acquired. COMPARISON: None. FINDINGS: Heart, mediastinum and pulmonary vascular: Heart is normal in size and configuration. Mediastinum is unremarkable. Pulmonary vascular is normal. Lungs: Clear Pleural spaces: Normal-no effusions or pneumothorax. IMPRESSION: Normal chest. Dictated by: Carlton Gusman M.D. on 04/11/2025 at 9:41 Approved by: Carlton Gusman M.D. on 04/11/2025 at 9:42
[2025-04-10 09:57] LABS: Add Manual Diff / Slide Review NO; Basophils Absolute Auto 0 /uL (0-100); Basophils Percent Auto 0.8 % (0-2); Eosinophils Absolute Auto 300 /uL (0-450); Eosinophils Percent Auto 5.2 % (2-4); Hemoglobin 13.7 g/dL (13.5-17.5); Lymphocytes Absolute Auto 1800 /uL (1100-4500); Lymphocytes Percent Auto 33.9 % (25-40); Mean Corpuscular HGB Conc 35.2 % (30-36); Mean Corpuscular Hemoglobin 32.3 PG (26-34); Mean Corpuscular Volume 91.8 fL (80-100); Monocytes Absolute Auto 300 /uL (0-900); Monocytes Percent Auto 6.2 % (3-14); Neutrophils Absolute Auto 2800 /uL (1500-7000); Neutrophils Percent Auto 53.9 % (50-75); Platelet Count 276 X10^3/uL (150-400); Red Blood Cell Count 4.25 X10^6/uL (4.5-5.9); Red Cell Distribution Width 13.4 % (11.6-14.8); White Blood Cell Count 5.2 X10^3/uL (4.5-11.0)
[2025-04-10 10:32] LABS: Alanine Aminotransferase 17 IU/L (<50); Albumin 4.7 g/dL (3.5-5.0); Albumin Globulin Ratio 1.9 (1.0-2.8); Alkaline Phosphatase 64 U/L (38-126); Aspartate Aminotransferase 34 IU/L (17-59); BUN Creatinine Ratio 13.8 (6-22); Bilirubin Total 0.7 mg/dL (0.2-1.3); Blood Urea Nitrogen 13 mg/dL (9-20); Calcium 9.5 mg/dL (8.4-10.2); Carbon Dioxide 26 mmol/L (22-32); Chloride 102 mmol/L (98-107); Cholesterol 180 mg/dL (140-199); Estimated Glomerular Filt Rate > 60 mL/min (>60); Globulin 2.5 g/dL (1.7-4.1); Glucose 94 mg/dL (70-99); HDL Cholesterol 67 mg/dL (40-60); HEMOLYSIS < 15 (0-50); LDL Cholesterol Calculated 103 mg/dL (<100); Potassium 4.9 mmol/L (3.4-5.1); Sodium 137 mmol/L (137-145); Total Protein 7.2 g/dL (6.3-8.2); Triglycerides 48 mg/dL (35-150)
[2025-04-10 10:55] LABS: Prostate Specific Antigen Scrn 2.43 ng/mL (0.1-4.0)
[2025-04-10 15:22] LABS: Hep C Virus Ab w/Reflex Quant NEGATIVE s/c (NEGATIVE)
== END ==
PROVIDERS: PCP Family Medicine; Referring Provider Family Medicine; Visit Provider Family Medicine
DX: R09.89 Other specified symptoms and signs involving the circulatory and respiratory systems (principal); Z12.5 Encounter for screening for malignant neoplasm of prostate; M25.511 Pain in right shoulder; M48.061 Spinal stenosis, lumbar region without neurogenic claudication; M54.16 Radiculopathy, lumbar region; G47.00 Insomnia, unspecified; S76.012A Strain of muscle, fascia and tendon of left hip, initial encounter; D64.9 Anemia, unspecified; M54.59 Other low back pain; M89.8X1 Other specified disorders of bone, shoulder
CPT/HCPCS: 36415; 71046; 73030; 80053; 80061; 85025; 86803; G0103

== ENCOUNTER → 2025-06-24 08:41 | Outpatient (CLI) | payer MEDICARE, OTHER, SELFPAY ==
--- NOTE | 2025-06-24 08:43 | DI.US.S_ITS ---
PROCEDURE: US PERIP VENOUS LOW EXTREM RT INDICATIONS: right calf pain, swelling TECHNIQUE: Real-time imaging, as well as color and pulse Doppler interrogation, were performed of the lower extremity deep veins from the inguinal ligament to the popliteal fossa, with documentation of the visualized calf veins. COMPARISON: Located Within [facility], , [facility] VENOUS LOW EXTREM RT, 02/22/2022, 8:12. FINDINGS: The common femoral, femoral, popliteal, and the visualized calf veins are normally compressible, and free of intraluminal thrombus. Color and pulse Doppler demonstrate normal phasic intraluminal flow. There is normal augmentation response to distal compression maneuver. IMPRESSION: No findings of DVT in visualized right lower extremity veins. Dictated by: Shayan Clayton M.D. on 06/24/2025 at 9:23 Approved by: Shayan Clayton M.D. on 06/24/2025 at 9:23
== END ==
PROVIDERS: PCP Family Medicine; Referring Provider Family Medicine; Visit Provider Family Medicine
DX: M79.89 Other specified soft tissue disorders (principal); M79.604 Pain in right leg
CPT/HCPCS: 93971